=== PATIENT | female | born 1960 ===

== ENCOUNTER 2020-04-10 12:18 | Outpatient (REF) | payer OTHER, SELFPAY ==
--- NOTE | 2020-04-10 12:38 | XR_ITS ---
EXAMINATION: XR FOOT, RIGHT CLINICAL INFORMATION: Pain COMPARISON: Previous x-ray 02/24/2020 TECHNIQUE: AP, lateral, and oblique views of the right foot. FINDINGS: There is an oblique fracture of the shaft of the fifth metatarsal bone. This appears unchanged in alignment. Fracture line is still seen. There is some interval bony callus formation suggestive of healing. There is overlying soft tissue swelling. No other fracture is seen. Joint spaces are normal. There is a small plantar calcaneal spur. IMPRESSION: Healing oblique minimally displaced fracture of the fifth metatarsal bone.
== END 2020-04-10 12:19 | disposition home or self-care (01) ==
LOC: HO.HOSX 12:18
PROVIDERS: PCP Nurse Practitioner Family; Referring Provider Nurse Practitioner Family; Visit Provider Physician Assistant
DX: M79.671 Pain in right foot (principal)
CPT/HCPCS: 73630

== ENCOUNTER → 2020-04-19 08:20 | Outpatient (BNVA) | payer OTHER, SELFPAY | PROVIDERS: PCP Nurse Practitioner Family; Visit Provider Anesthesiology | DX: Z76.89 Persons encountering health services in other specified circumstances (principal) ==

== ENCOUNTER 2020-05-03 08:20 | Outpatient (REF) | payer OTHER, SELFPAY ==
[2020-05-03 10:56] LABS: Alanine Aminotransferase 22 U/L (0-31); Albumin Level 4.2 g/dL (3.5-5.0); Alkaline Phosphatase 60 U/L (39-117); Anion Gap 10 (12-20); Aspartate Amino Transferase 21 U/L (5-31); Bilirubin Total 0.4 mg/dL (0.0-1.0); Blood Urea Nitrogen 19 mg/dL (9-16); Carbon Dioxide 30 mmol/L (22-29); Chloride 103 mmol/L (96-108); Estimated Glomerular Filt Rate > 60; Glucose Random 88 mg/dL (60-115); Potassium 4.3 mmol/l (3.3-5.1); Sodium 139 mmol/L (135-145); Total Protein 6.6 g/dL (6.5-8.0)
== END 2020-05-03 08:21 | disposition home or self-care (01) ==
LOC: HO.LAB 08:20
PROVIDERS: PCP Nurse Practitioner Family; Referring Provider Nurse Practitioner Family; Visit Provider Student in an Organized Health Care Education/Training Program
DX: G89.29 Other chronic pain (principal); M54.5 Low back pain
CPT/HCPCS: 80053

== ENCOUNTER → 2020-10-31 07:42 | Outpatient (BNVA) | payer OTHER, SELFPAY | PROVIDERS: PCP Nurse Practitioner Family; Visit Provider Student in an Organized Health Care Education/Training Program ==

== ENCOUNTER → 2021-05-03 07:43 | Outpatient (BNVA) | payer OTHER, SELFPAY | PROVIDERS: PCP Nurse Practitioner Family; Visit Provider Nurse Practitioner Family ==

== ENCOUNTER 2021-08-01 07:52 | Outpatient (REF) | payer OTHER, SELFPAY ==
--- NOTE | ~2021-08-01 | US_ITS ---
EXAMINATION: US ABDOMEN COMPLETE CLINICAL INFORMATION: Right upper quadrant pain. COMPARISON: CT abdomen and pelvis 02/19/2011. TECHNIQUE: Real-time imaging of the abdominal viscera. FINDINGS: PANCREAS: Normal. ABDOMINAL AORTA: The proximal, mid, and distal segments are normal in caliber. INFERIOR VENA CAVA: Visualized portions are normal. LIVER: The liver is normal in size. The liver contour is normal. The liver echotexture is normal. No focal hepatic lesion. There is no intrahepatic biliary duct dilatation seen. GALLBLADDER: Normal. The gallbladder is physiologically distended without evidence of stones, polyps, wall thickening or pericholecystic fluid. COMMON BILE DUCT: Normal in caliber measuring 0.6 cm in diameter. RIGHT KIDNEY: Normal. No hydronephrosis. No renal calculi or focal parenchymal lesions. The kidney measures 10.8 cm in maximum dimension. LEFT KIDNEY: Normal No hydronephrosis. No renal calculi or focal parenchymal lesions. The kidney measures 10.8 cm in maximum dimension. SPLEEN: Normal. The spleen measures 10.2 cm in maximum dimension. FREE FLUID: None. US/US abdomen complete IMPRESSION: Unremarkable exam.
[2021-08-01 09:33] LABS: Alanine Aminotransferase 12 U/L (0-31); Albumin Level 4.4 g/dL (3.5-5.0); Alkaline Phosphatase 61 U/L (39-117); Anion Gap 12 (12-20); Aspartate Amino Transferase 17 U/L (5-31); Bilirubin Total 0.6 mg/dL (0.0-1.0); Blood Urea Nitrogen 15 mg/dL (9-16); Calcium 9.7 mg/dL (8.4-10.2); Carbon Dioxide 28 mmol/L (22-29); Chloride 106 mmol/L (96-108); Estimated Glomerular Filt Rate > 60; Glucose Random 96 mg/dL (60-115); Potassium 4.6 mmol/L (3.3-5.1); Sodium 141 mmol/L (135-145)
== END 2021-08-01 07:53 | disposition home or self-care (01) ==
LOC: HO.US 07:52
PROVIDERS: Nurse Practitioner Family; PCP Internal Medicine; Visit Provider Internal Medicine
DX: R10.11 Right upper quadrant pain (principal); G89.29 Other chronic pain; M54.50 Low back pain, unspecified
CPT/HCPCS: 36415; 76700; 80053

== ENCOUNTER → 2021-10-31 07:42 | Outpatient (BNVA) | payer OTHER, SELFPAY | PROVIDERS: PCP Nurse Practitioner Family; Visit Provider Nurse Practitioner Family | DX: M54.50 Low back pain, unspecified (principal) ==

== ENCOUNTER 2022-07-11 09:12 | Outpatient (REF) | payer OTHER, SELFPAY ==
[2022-07-11 11:27] LABS: Amphetamine Screen Urine Not Detected (Not Detect); Barbiturates, Urine Not Detected (Not Detect); Benzodiazepines Screen Urine Not Detected (Not Detect); Cocaine Screen Urine Not Detected (Not Detect); Fentanyl, urine Not Detected (Not Detect); Opiate Screen Urine Not Detected (Not Detect); Phencyclidine Screen Urine Not Detected (Not Detect)
[2022-07-11 11:29] LABS: Cannabinoid Screen Urine POSITIVE (Not Detect)
[2022-07-26 10:05] LABS: Tramadol, Ur 5850
[2022-07-26 10:08] LABS: Desmethyltramadol, Ur 785
== END 2022-07-11 09:13 | disposition home or self-care (01) ==
LOC: HO.LAB 09:12
PROVIDERS: PCP Internal Medicine; Visit Provider Nurse Practitioner Family
DX: Z51.81 Encounter for therapeutic drug level monitoring (principal)
CPT/HCPCS: 80307; 80373

== ENCOUNTER 2022-08-07 07:33 | Outpatient (REF) | payer OTHER, SELFPAY ==
--- NOTE | ~2022-08-07 | XR_ITS ---
EXAMINATION: XR HAND, BILATERAL CLINICAL INFORMATION: Bilateral hand pain, osteoarthritis. COMPARISON: 12/15/2018. TECHNIQUE: 3 views of each hand. FINDINGS: Right Hand: Moderate-severe osteoarthritis of the 1st CMC joint and relatively mild degenerative changes of the MCP and interphalangeal joints, overall slightly progressed since the prior study. No acute osseous abnormality. Left Hand: Mild osteoarthritis of the 1st CMC joint, 2nd MCP joint, and the interphalangeal joints which does not appear significantly changed. No acute abnormality. XR/XR hand LT min 3V IMPRESSION: RIGHT HAND: Moderate-severe osteoarthritis of the 1st CMC joint, overall slightly progressed since the prior study. LEFT HAND: Mild osteoarthritis of the 1st CMC joint, 2nd MCP joint, and interphalangeal joints, overall not significantly changed.
--- NOTE | ~2022-08-07 | XR_ITS ---
EXAMINATION: XR HAND, BILATERAL CLINICAL INFORMATION: Bilateral hand pain, osteoarthritis. COMPARISON: 12/15/2018. TECHNIQUE: 3 views of each hand. FINDINGS: Right Hand: Moderate-severe osteoarthritis of the 1st CMC joint and relatively mild degenerative changes of the MCP and interphalangeal joints, overall slightly progressed since the prior study. No acute osseous abnormality. Left Hand: Mild osteoarthritis of the 1st CMC joint, 2nd MCP joint, and the interphalangeal joints which does not appear significantly changed. No acute abnormality. XR/XR hand RT min 3V IMPRESSION: RIGHT HAND: Moderate-severe osteoarthritis of the 1st CMC joint, overall slightly progressed since the prior study. LEFT HAND: Mild osteoarthritis of the 1st CMC joint, 2nd MCP joint, and interphalangeal joints, overall not significantly changed.
== END 2022-08-07 07:34 | disposition home or self-care (01) ==
LOC: HO.XRAY 07:33
PROVIDERS: PCP Internal Medicine; Visit Provider Nurse Practitioner Family
DX: M19.042 Primary osteoarthritis, left hand (principal); M19.041 Primary osteoarthritis, right hand
CPT/HCPCS: 73130

== ENCOUNTER 2023-01-01 08:23 | Outpatient (AMB) | payer OTHER, SELFPAY ==
[2023-01-01 08:38] VITALS: BP 108/60; PULSE 62; TEMP 36.4; O2SAT 98; BMI 23.4
--- NOTE | 2023-01-01 08:38 | MHC.OFFVIS ---
Intake Vital Signs 01/01/23 08:38 Height 5 ft 11 in Weight 167 lb 12.348 oz BMI 23.4 BP 108/60 Blood Pressure Location Rt brachial Position Sitting Pulse 62 Pulse Source Pulse Oximeter Temp 97.5 F Temp Source Skin Pulse Oximetry (%) 98 Intake Visit Reasons: Back pain Intake Note: Pt seen today for back pain follow up. Seen multiple rheumatologists in the past and she has ? FM vs Lupus. Reports joint pain that comes in waves, where every joint hurts.. worse is rt hand and wrist, she reports flare up pain/swelling and redness 2-3 weeks ago. Flare up lasted about 5-7 days Echocardiograph Technician Required: No Accompanied by: Self / Same As Patient Allergies pregabalin Allergy (Intermediate, Verified 01/01/23 08:43) rash, headaches Medication List - Last Reconciled 01/01/23 by Hi Doan MD acetaminophen ER (Tylenol Arthritis Pain) 650 mg PO Q8H PRN baclofen 10 mg PO TID gabapentin 600 mg (2 x 300 mg) PO BEDTIME tramadol 50 mg PO Q8H PRN HPI HPI Comments History of Present Illness Details The patient presents for evaluation of hand pain and wrist pain. Mostly she describes pain at the base of the thumb with some general spread of the pain a bit proximally and dorsally over the hand. This has been present for years. It is worse in the right hand. She does have a positive BRENDEN. 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 Currently for her symptoms she takes acetaminophen 650 mg 3 times a day, gabapentin 600 mg at bedtime, and tramadol 50 mg 3 times a day. She sometimes takes the gabapentin in the daytime but finds it is often too sedating. In the past she was thought to possibly have fibromyalgia. She also gets low back pain. This comes on with more physical activity. [facility] Medical History (Updated 01/01/23 @ 15:48 by Hi Doan MD) Abdominal hernia H/O diverticulitis of colon Surgical History History of intestinal surgery History of partial hysterectomy Hx of knee surgery Family History (Updated 01/01/23 @ 08:45 by DARYL Butler) Father Heart attack Mother Colon cancer Diabetes Social History (Updated 01/01/23 @ 08:44 by Melania Ricks [facility]) Alcohol intake: current Alcohol intake frequency: holidays/special occasions only Patient Tobacco Use Status: Former Tobacco user Current occupational status: employed Current occupation: [employer] Sexual orientation: Straight/Heterosexual Gender identity: Female Review of Systems Const Details: Negative for appetite change, weight change, fever, chills, malaise and fatigue Eyes Details: Negative for vision change, dry eyes,headaches and dizziness Card Details: Negative chest pain, edema and syncope Resp Details: Negative for SOB, cough and wheezing GI Details: Negative indigestion/heartburn, nausea, abdominal pain, bowel changes, diarrhea, constipation and bloody stool. Skin/Breast Details: Negative for itching, rash, hives, Raynaud's symptoms, sun sensitivity, and skin cancer Neuro Details: Negative for epilepsy, palsy, stroke, changes in speech, tingling and weakness Psych Details: Negative for anxiety, depression and stress Endo Details: Negative for polyuria and polydypsia Arturo/Lymph Details: Negative for excessive bruising or bleeding. Physical Exam Vital Signs: Last Vital Signs Temp 97.5 F 01/01/23 08:38 Pulse 62 01/01/23 08:38 BP 108/60 01/01/23 08:38 Pulse Ox 98 01/01/23 08:38 BMI result Body Mass Index 23.4 APPEARANCE: Patient in no acute distress EYES no redness, pupils equal and reactive to light, eyelids normal EXTREMITIES: No edema, no calf tenderness, normal peripheral pulses. SKIN: No inflammatory or neoplastic lesions. Normal color and turgor JOINT EXAM: ?Cervical Spine:? Full range of motion without pain; no tenderness. Thoracic Spine:? No scoliosis.? No tenderness on palpation. Lumbar Spine:? Alignment normal.? Full range of motion, some pain with flexion, at 60 degrees..? No tenderness over lumbar spine. Hands:? LEFT: Slight bony enlargement and mild tenderness at the base of the thumb. Nontender bony enlargement at the 2nd, 3rd and 5th PIP joints. No flexor tendon triggering, soft tissue swelling, thenar atrophy or sensory loss. ? RIGHT: Mild bony enlargement and mild to moderate tenderness at the base of the thumb. There is some slightly tender bony enlargement also at the thumb IP and the 2nd and 3rd PIP joints. There is no soft tissue swelling. There is some thenar atrophy but no sensory loss. Wrists:? Normal pain-free range of motion without tenderness, swelling, increased warmth or erythema. Elbows: Normal pain-free range of motion without tenderness, swelling, increased warmth or erythema. Shoulders:?? Full range of motion without pain. No tenderness, weakness, swelling, increased warmth or erythema. Hips:? Full range of motion without pain. Hip bursa:? No tenderness. Knees:? Normal pain-free range of motion without tenderness, swelling, increased warmth or erythema.? There is no effusion or crepitation Feet:? Mild 1st MTP bony enlargement without tenderness. No soft tissue swelling, redness or warmth. Tender points: Positive in the trapezius, knees and trochanteric regions. Results Reviewed Results Reviewed: [address] [address] XRay Report Signed Patient: Alexus Swain MR#: [id number] : 1960 Acct:[id number] Age/Sex: 61 / F ADM Date: 08/07/22 Loc: [facility] Attending Dr: Kimberley Vasquez NP Ordering Physician: Kimberley Vasquez NP Date of Service: 08/07/22 Procedure(s): XR hand RT min 3V Accession Number(s): [id number] cc: Kimberley Vasquez NP~ EXAMINATION: XR HAND, BILATERAL CLINICAL INFORMATION: Bilateral hand pain, osteoarthritis.? COMPARISON: 12/15/2018.? TECHNIQUE: 3 views of each hand.? FINDINGS: Right Hand: Moderate-severe osteoarthritis of the 1st CMC joint and relatively mild degenerative changes of the MCP and interphalangeal joints, overall slightly progressed since the prior study. No acute osseous abnormality. Left Hand: Mild osteoarthritis of the 1st CMC joint, 2nd MCP joint, and the interphalangeal joints which does not appear significantly changed. No acute abnormality.? XR/XR hand RT min 3V IMPRESSION: ? RIGHT HAND: Moderate-severe osteoarthritis of the 1st CMC joint, overall slightly progressed since the prior study. ? LEFT HAND: Mild osteoarthritis of the 1st CMC joint, 2nd MCP joint, and interphalangeal joints, overall not significantly changed. Dictated By: Gonsalo Valdez MD Signed By: <Electronically signed by Gonsalo Valdez MD in OV> 08/08/22 1900 Assessment & Plan Assessment & Plan (1) Spondylosis of lumbar region without myelopathy or radiculopathy: Code(s): M47.816 - Spondylosis without myelopathy or radiculopathy, lumbar region (2) Osteoarthritis of hands, bilateral: Code(s): M19.041 - Primary osteoarthritis, right hand; M19.042 - Primary osteoarthritis, left hand Plan Her biggest problem is osteoarthritis at the base of the thumbs. This is more prominent on the right side. There are also a few other joints in the hands look like they have OA. She is less active now that she has retired so that should be possibly more helpful for her. She remains on 50 mg tramadol, 2-3 tablets a day. I suggest she add some diclofenac gel topically and see if she could avoid using the tramadol during the day. We went over that use of the tramadol and gabapentin could cause extra sedation which she may become more sensitive to as she gets older. I will continue with the controlled substance contract for the present time. Since she has stopped working it might be a good time to undergo some physical therapy so she can develope an exercise program to improve the symptoms in the lumbar osteoarthritis. She is not wishing to do that currently but will give us a call if she changes her mind. A follow-up in 6 months would be reasonable. Medications: New diclofenac sodium 1% apply to thumbs joint twice day 1 g topical BID 100 grams 1RF M19.041 - Primary osteoarthritis, right hand, M19.042 - Primary osteoarthritis, left hand Coding Level of Care Code Est Pt Level 3 (36279) Diagnoses Spondylosis of lumbar region without myelopathy or radiculopathy M47.816 Osteoarthritis of hands, bilateral M19.041; M19.042
== END 2023-01-01 09:42 | disposition home or self-care (01) ==
PROVIDERS: PCP Internal Medicine; Visit Provider Internal Medicine Rheumatology
DX: M47.816 Spondylosis without myelopathy or radiculopathy, lumbar region (principal); M19.041 Primary osteoarthritis, right hand; M19.042 Primary osteoarthritis, left hand
CPT/HCPCS: 99213

== ENCOUNTER → 2023-01-01 08:23 | Outpatient (BNVA) | payer OTHER, SELFPAY | PROVIDERS: PCP Internal Medicine; Visit Provider Internal Medicine Rheumatology | DX: M47.816 Spondylosis without myelopathy or radiculopathy, lumbar region (principal); M19.041 Primary osteoarthritis, right hand; M19.042 Primary osteoarthritis, left hand | CPT/HCPCS: 99212 ==

== ENCOUNTER 2023-06-04 08:10 | Outpatient (AMB) | payer OTHER, SELFPAY ==
--- NOTE | 2023-06-04 08:11 | A.OFFVIS_ITS ---
Intake Vital Signs 06/04/23 08:16 Height 5 ft 11 in Weight 175 lb 4.28 oz BMI 24.4 BP 104/60 Blood Pressure Location Lt brachial Position Sitting Pulse 73 Pulse Source Pulse Oximeter Temp 97 F Temp Source Skin Pulse Oximetry (%) 96 Oxygen Delivery Method Room Air Intake Visit Reasons: OA Intake Note: Patient presents to office today for OA follow up. Customer Success Representative Required: No Accompanied by: Self / Same As Patient Allergies pregabalin Allergy (Intermediate, Verified 06/04/23 08:12) rash, headaches Medication List - Last Reconciled 06/04/23 by Hi Doan MD acetaminophen ER (Tylenol Arthritis Pain) 650 mg PO Q8H PRN baclofen 10 mg PO TID diclofenac sodium 1% 1 g topical BID gabapentin 600 mg (2 x 300 mg) PO BEDTIME tramadol 50 mg PO Q8H PRN HPI HPI Comments History of Present Illness Details The patient returns for evaluation of her osteoarthritis involving the hands, lower back, and occasionally the knees. She is on tramadol 50 mg t.i.d., sometimes taking just 2 a day. She has tried Tylenol Arthritis but does not use it often as it does not seem to help a whole lot. She does take baclofen 10 mg t.i.d. which she finds is helpful. She takes gabapentin at night for some peripheral leg pain and stiffness. At her last visit we started some diclofenac gel and she has found that helpful for her hand pain, she is occasionally using it on the knees. There has not been any swelling in the knees but she does get some bony enlargement over the hands. The right thumb is the more problematic area. However in the last 4 or 5 months she has been noting some hand paresthesias, more prominent in the left hand. She does have wrist splints that seem to help that. She has never had nerve conduction studies. She did have injections for the back pain in the past that were not all that helpful. She is retired now but does do gardening and housework. On busier days there is more hand and back pain. [facility] Medical History (Updated 01/01/23 @ 15:48 by Hi Doan MD) Abdominal hernia H/O diverticulitis of colon Surgical History History of intestinal surgery History of partial hysterectomy Hx of knee surgery Family History Father Heart attack Mother Colon cancer Diabetes Social History Alcohol intake: current Alcohol intake frequency: holidays/special occasions only Patient Tobacco Use Status: Former Tobacco user Current occupational status: employed Current occupation: [employer] Sexual orientation: Straight/Heterosexual Gender identity: Female Review of Systems Const Details: Negative for appetite change, weight change, fever, chills, malaise and fatigue Eyes Details: Negative for vision change, dry eyes,headaches and dizziness ENT Details: Negative for hearing change, tinnitus, oral ulcer, nose bleeds and oral dryness. Card Details: Negative chest pain, edema and syncope Resp Details: Negative for SOB, cough and wheezing GI Details: Negative indigestion/heartburn, nausea, abdominal pain, bowel changes, diarrhea, constipation and bloody stool. Neuro Details: Left greater than right hand paresthesias. Negative for epilepsy, palsy, stroke, changes in speech, and weakness Endo Details: Negative for polyuria and polydypsia Arturo/Lymph Details: Negative for excessive bruising or bleeding. Physical Exam Vital Signs: Last Vital Signs Temp 97 F 06/04/23 08:16 Pulse 73 06/04/23 08:16 BP 104/60 06/04/23 08:16 Pulse Ox 96 06/04/23 08:16 Oxygen Delivery Method Room Air 06/04/23 08:16 BMI result Body Mass Index 24.4 APPEARANCE: Patient in no acute distress EYES no redness, pupils equal and reactive to light, eyelids normal EXTREMITIES: No edema, no calf tenderness, normal peripheral pulses. SKIN: No inflammatory or neoplastic lesions. Normal color and turgor JOINT EXAM: ?Cervical Spine:? Full range of motion without pain; no tenderness. Thoracic Spine:? No scoliosis.? No tenderness on palpation. Lumbar Spine:? Alignment normal.? Full range of motion, some pain with flexion, at 60 degrees..? No tenderness over lumbar spine. Hands:? LEFT: Slight bony enlargement and mild tenderness at the base of the thumb. Nontender bony enlargement at the 2nd, 3rd and 5th PIP joints. No flexor tendon triggering, soft tissue swelling, thenar atrophy or sensory loss. ? RIGHT: Mild bony enlargement and mild to moderate tenderness at the base of the thumb. There is some slightly tender bony enlargement also at the thumb IP and the 2nd and 3rd PIP joints. There is no soft tissue swelling. There is some thenar atrophy but no sensory loss. Wrists:? Right: Normal pain-free range of motion without tenderness, swelling, increased warmth or erythema. Negative Phalen's and Tinel signs. Left: Normal pain-free range of motion without swelling. There is some minimal volar tenderness. Positive Phalen's test but negative Tinel sign. Elbows: Normal pain-free range of motion without tenderness, swelling, increased warmth or erythema. Shoulders:?? Full range of motion with slight discomfort at the extremes of abduction. No adenopathy, tenderness, weakness, swelling, increased warmth or erythema. Hips:? Full range of motion without pain. Hip bursa:? No tenderness. Knees:? Normal pain-free range of motion with slight patellofemoral crepitus. There is some minimal medial compartment tenderness on the left but not the right. There are no effusions, soft tissue swelling, increased warmth or erythema.? There is no effusion or crepitation Feet:? Mild 1st MTP bony enlargement without tenderness. No soft tissue swelling, redness or warmth. Tender points: Positive in the trapezius, knees and trochanteric regions. Results Reviewed Results Reviewed: Laboratory Tests 12/15/18 08/01/21 12:35 08:15 Hgb 13.4 Creatinine 0.86 Assessment & Plan Assessment & Plan (1) Carpal tunnel syndrome: Code(s): G56.00 - Carpal tunnel syndrome, unspecified upper limb (2) Medication monitoring encounter: Comment: Tramadol pain contract updated 06/04/2022 Code(s): Z51.81 - Encounter for therapeutic drug level monitoring (3) Spondylosis of lumbar region without myelopathy or radiculopathy: Code(s): M47.816 - Spondylosis without myelopathy or radiculopathy, lumbar region (4) Osteoarthritis of hands, bilateral: Code(s): M19.041 - Primary osteoarthritis, right hand; M19.042 - Primary osteoarthritis, left hand Plan The hand numbness in the left hand at night and the response to splinting suggest this is carpal tunnel syndrome. She has much milder and less frequent paresthesias in the right hand. However there is more OA pain in the right thumb. She also probably has some OA in the knees and lower back. She asks about taking fewer pills; I suggested she try to cut back on the tramadol. It does potential side effects. If she were to use the extra-strength Tylenol, 1 or 2 t.i.d. that might give her more quick benefit for pain relief when needed. We talked about possibly doing nerve conduction studies to document carpal tunnel syndrome with looking to the future either with injections of the wrists and or surgery for carpal tunnel. She wants to think about it further. I encouraged her to remain physically active but be judicious about prolonged physical activity and try to spread out her chores over few days. A follow-up at 6 months is arranged but she could call us in the future if she wants to proceed with the nerve conduction studies. Coding Level of Care Code Est Pt Level 3 (63601) Diagnoses Carpal tunnel syndrome G56.00 Medication monitoring encounter Z51.81 Spondylosis of lumbar region without myelopathy or radiculopathy M47.816 Osteoarthritis of hands, bilateral M19.041; M19.042
[2023-06-04 08:16] VITALS: BP 104/60; PULSE 73; TEMP 36.1; O2SAT 96; BMI 24.4
== END 2023-06-04 08:55 | disposition home or self-care (01) ==
PROVIDERS: PCP Internal Medicine; Visit Provider Internal Medicine Rheumatology
DX: G56.00 Carpal tunnel syndrome, unspecified upper limb (principal); Z51.81 Encounter for therapeutic drug level monitoring; M47.816 Spondylosis without myelopathy or radiculopathy, lumbar region; M19.041 Primary osteoarthritis, right hand; M19.042 Primary osteoarthritis, left hand
CPT/HCPCS: 99213

== ENCOUNTER → 2023-06-04 08:10 | Outpatient (BNVA) | payer OTHER, SELFPAY | PROVIDERS: PCP Internal Medicine; Visit Provider Internal Medicine Rheumatology | DX: Z51.81 Encounter for therapeutic drug level monitoring (principal); M19.041 Primary osteoarthritis, right hand; M19.042 Primary osteoarthritis, left hand; G56.00 Carpal tunnel syndrome, unspecified upper limb; M47.816 Spondylosis without myelopathy or radiculopathy, lumbar region | CPT/HCPCS: 99212 ==

== ENCOUNTER 2023-10-03 06:35 | Day surgery (SDC) | payer MEDICARE, SELFPAY ==
[2023-09-30 13:08] VITALS: BMI 27.0
--- NOTE | 2023-10-02 10:52 | HO.ANESPROP2 ---
Documented by User: Johana Swenson NP 10/02/23 10:53 HPI - Anesthesia Eval Consult details Narrative: 63yo F for Colonoscopy PMFSH Active Problems Active Problems: All Active Problems Carpal tunnel syndrome (Acute) Plantar fascial fibromatosis (Acute) Insomnia (Acute) Medication monitoring encounter (Acute) Osteoarthritis of hands, bilateral (Acute) Spondylosis of lumbar region without myelopathy or radiculopathy (Acute) FPC current use of non-steroidal anti-inflammatories (NSAID) (Acute) Past Medical History Medical History (Updated 09/30/23 @ 13:03 by Denise Mccray RN) Urine incontinence Uterine prolapse Osteoarthritis FPC current use of non-steroidal anti-inflammatories (NSAID) Abdominal hernia H/O diverticulitis of colon Family History Family History Father Heart attack Mother Colon cancer Diabetes Surgical History Surgical History (Updated 09/30/23 @ 13:03 by Denise Mccray RN) Hx of resection of large bowel History of arthroscopy of left knee H/O colonoscopy History of intestinal surgery History of partial hysterectomy Hx of knee surgery Social History Social History Alcohol intake: current Alcohol intake frequency: holidays/special occasions only Patient Tobacco Use Status: Former Tobacco user Substance Use Type Other:: edibles 4 nights ago Are you DNR?: No Advance Directives: No Advance Directives Information Provided: Yes Nutrition Risks: No Nutritional Risk Patient : No Current occupational status: employed Current occupation: [employer] Sexual orientation: Straight/Heterosexual Gender identity: Female Meds Allergies Allergy/AdvReac Type Severity Reaction Status Date / Time pregabalin Allergy Intermediate rash, Verified 06/04/23 08:12 headaches Home Medications ?Medication ?Instructions ?Recorded ?Confirmed ?Last Taken ?Type [id number] 250 2 tab PO DAILY 09/30/23 09/30/23 09/25/23 History mg-250 mg-65 mg tablet (Excedrin Extra Strength) tramadol 50 mg tablet 100 mg PO QID PRN pain 09/30/23 09/30/23 09/25/23 History Exam Height,Weight and Vital Signs: Height 5 ft 6.5 in Weight 77.111 kg Assessment and Plan Assessment Anesthesia Assessment: Chart Reviewed Documented by User: Alexey Swain MD 10/03/23 07:32 PMFSH Past Medical History Medical History (Updated 09/30/23 @ 13:03 by Denise Mccray RN) Urine incontinence Uterine prolapse 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) Abdominal hernia H/O diverticulitis of colon Family History Family History Father Heart attack Mother Colon cancer Diabetes Family history of problems with anesthesia: No Surgical History Surgical History (Updated 09/30/23 @ 13:03 by Denise Mccray RN) Hx of resection of large bowel History of arthroscopy of left knee H/O colonoscopy History of intestinal surgery History of partial hysterectomy Hx of knee surgery History of Problems with Anesthesia: No Social History Social History Alcohol intake: current Alcohol intake frequency: holidays/special occasions only Patient Tobacco Use Status: Former Tobacco user Substance Use Type Other:: edibles 4 nights ago Are you DNR?: No Advance Directives: No Advance Directives Information Provided: Yes Nutrition Risks: No Nutritional Risk Patient : No Current occupational status: employed Current occupation: [employer] Sexual orientation: Straight/Heterosexual Gender identity: Female Meds Allergies Allergy/AdvReac Type Severity Reaction Status Date / Time pregabalin Allergy Intermediate rash, Verified 06/04/23 08:12 headaches Home Medications ?Medication ?Instructions ?Recorded ?Confirmed ?Last Taken ?Type gdfoxjw-bgeogctbhndnl-rpthvpjp 250 2 tab PO DAILY 09/30/23 09/30/23 09/25/23 History mg-250 mg-65 mg tablet (Excedrin Extra Strength) tramadol 50 mg tablet 100 mg PO QID PRN pain 09/30/23 09/30/23 09/25/23 History Exam Airway Mallampati Class: I TM Dist: >3cm Neck ROM: Full Denture: Upper Partial: Lower Loose/Missing/Broken Teeth: No Heart: rrr Lungs: cta Assessment and Plan Assessment Anesthesia Assessment: Anesthesia Plan Discussed Final Anesthetic Review Family History of Problems with Anesthesia: No History of Problems with Anesthesia: No NPO: Yes ASA Class: II Final Preanesthetic Review: No Changes in Pt Med Stat, Meds/Allgs Chart Reviewed, Consent Obtained/Reviewed and Anes Risks/Benef Reviewed Patient Risk: Intermediate Procedure Risk: Intermediate Anesthetic Plan Anesthetic Plan: MAC: Disposition: Standard PACU
[2023-10-03 06:57] VITALS: BP 140/82; PULSE 75; RESP 18; TEMP 36.6; O2SAT 98; BMI 27.7
[2023-10-03] MEDS: Lactated Ringers 1,000 ML 100 ML IVCONT (07:17)
--- NOTE | 2023-10-03 08:17 | MHC.SHP ---
Pre-Procedural Eval Section A - 24 Hr Update-Section A only Date of Service: 10/03/23 Section B - Complete if H&P > 30 days Chief Complaint: Encounter for screening for malignant neoplasm of Details of Present Illness: see H&P no changes Relevant Family History (Specify if Yes): No Relevant Social History: None Present Medications: see Short Stay Collaborative assessment Medical History: No relevant PMH History of Previous Operations: No relevant previous surgery Allergies: Allergies Allergy/AdvReac Type Severity Reaction Status Date / Time pregabalin Allergy Intermediate rash, Verified 06/04/23 08:12 headaches Review of Systems Sugical H&P ROS: Negative: Constitution, Cardiovascular, Respiratory, Neurological, Psychiatric, Hem-Onc, Allergic/Immunologic, Gastrointestinal, Genitourinary, Musculoskeletal, Integumentary, Endocrine and Eyes/Ears/Nose/Throat Exam Surgical H&P Exam: Normal: HEENT, Normal: Heart, Normal: Lungs, Normal: Extremities, Normal: Abdomen, Normal: Skin and Normal: Neurological Plan Diagnosis/Plan: Unchanged I have reviewed the history and physical and performed a pertinent physical examination on my patient. No changes have occurred unless specified. Time Spent With Patient Time: Total time managing care of this patient today ____ minutes.
[2023-10-03 09:14] VITALS: BP 125/73; PULSE 73; RESP 16; TEMP 36.1; O2SAT 97
[2023-10-03 09:33] VITALS: BP 126/75; PULSE 58; RESP 17; TEMP 36.1; O2SAT 98
--- NOTE | 2023-10-03 09:34 | OP_ITS ---
DATE OF SERVICE: 10/03/2023 SURGEON: Volodymyr Harley MD INDICATIONS: Colon cancer screening. PREOPERATIVE DIAGNOSIS: POSTOPERATIVE DIAGNOSIS: PROCEDURE PERFORMED: Colonoscopy to the terminal ileum with snare polypectomy and biopsy. ESTIMATED BLOOD LOSS: COMPLICATIONS: ANESTHESIA: Monitored anesthesia care. ASSISTANTS: SPECIMENS: DESCRIPTION OF PROCEDURE: A history and physical performed. The risks and benefits of the procedure explained to the patient. Informed consent was obtained. The patient was placed in the left lateral decubitus position. A digital rectal exam was performed and was found to be normal. The Olympus pediatric video-colonoscope was introduced into the rectum and advanced to the cecum. The cecum was identified by transillumination, palpation, and identification of ileocecal valve. Examination was performed. The scope was removed. She tolerated the procedure well, was returned to Recovery in stable condition. FINDINGS: The terminal ileum was normal. The visualized colonic mucosa was normal. There were a total of 3 polyps, which were removed with a combination of biopsy forceps and hot snare. All were less than 10 mm. Two were located at 50 cm and one at 40 cm. No other polyps were identified. Retroflexed examination showed some hypertrophic anal papillae and moderate-sized internal hemorrhoids. There was some diverticulosis mainly in the descending colon. The quality of the prep was good. IMPRESSION: 1. Colon polyps. 2. Family history of colon cancer. RECOMMENDATION: 1. Follow up the biopsy results. 2. Repeat colonoscopy is likely to be in 5 years based on today's examination. MD JONE Sanchez/ERIKL / [id number]
== END 2023-10-03 10:07 | disposition home or self-care (01) ==
PROVIDERS: PCP Internal Medicine; Visit Provider Internal Medicine Gastroenterology
PROC: 0DJD8ZZ Inspection of Lower Intestinal Tract, Via Natural or Artificial Opening Endoscopic (ICD-10-PCS; CPT 45378; principal; 2023-10-03 08:10)
DX: Z12.11 Encounter for screening for malignant neoplasm of colon (principal); Z80.0 Family history of malignant neoplasm of digestive organs; Z86.010 Personal history of colon polyps; D12.5 Benign neoplasm of sigmoid colon; K62.89 Other specified diseases of anus and rectum; K57.30 Diverticulosis of large intestine without perforation or abscess without bleeding; K64.8 Other hemorrhoids; Z79.899 Other long term (current) drug therapy; Z79.1 Long term (current) use of non-steroidal anti-inflammatories (NSAID); Z90.49 Acquired absence of other specified parts of digestive tract; Z98.890 Other specified postprocedural states; Z87.891 Personal history of nicotine dependence
CPT/HCPCS: 45385; 45380; 88305

== ENCOUNTER 2023-12-05 08:11 | Outpatient (AMB) | payer MEDICARE, SELFPAY ==
--- NOTE | 2023-12-05 08:16 | MHC.OFFVIS ---
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 Doan, presents today for follow up. Denies recent surgeries or hospital visits. She is retired, reports some hand pain after gardening. Difficulty sleeping, occasionally takes gummies Ad Operations Coordinator Required: No Accompanied by: Self / Same As Patient Allergies pregabalin Allergy (Intermediate, Verified 12/05/23 08:33) rash, headaches Followed by:: Dr Harley Colonoscopy q5y FH Colon CA HPI Comments Details: Ms. Swain 63yoF returns for follow-up of her osteoarthritis involving the hands, lower back, and occasionally the knees. She is on tramadol 50 mg t.i.d., sometimes taking just 2 a day. She does take baclofen 10 mg t.i.d. She offers no concerns today. She is going to [facility] with her son who getting Chemo. 05/2023: Dr. Doan The patient returns for evaluation of her osteoarthritis involving the hands, lower back, and occasionally the knees. She is on tramadol 50 mg t.i.d., sometimes taking just 2 a day. She has tried Tylenol Arthritis but does not use it often as it does not seem to help a whole lot. She does take baclofen 10 mg t.i.d. which she finds is helpful. She takes gabapentin at night for some peripheral leg pain and stiffness. At her last visit we started some diclofenac gel and she has found that helpful for her hand pain, she is occasionally using it on the knees. There has not been any swelling in the knees but she does get some bony enlargement over the hands. The right thumb is the more problematic area. However in the last 4 or 5 months she has been noting some hand paresthesias, more prominent in the left hand. She does have wrist splints that seem to help that. She has never had nerve conduction studies. She did have injections for the back pain in the past that were not all that helpful. She is retired now but does do gardening and housework. On busier days there is more hand and back pain. [facility] Medical History (Updated 12/05/23 @ 08:56 by ALONSO Ryder-JONE) Urine incontinence Uterine prolapse Osteoarthritis senior care current use of non-steroidal anti-inflammatories (NSAID) Abdominal hernia H/O diverticulitis of colon Surgical History Hx of resection of large bowel History of arthroscopy of left knee H/O colonoscopy History of intestinal surgery History of partial hysterectomy Hx of knee surgery Family History Father Heart attack Mother Colon cancer Diabetes Social History Alcohol intake: current Alcohol intake frequency: holidays/special occasions only Patient Tobacco Use Status: Former Tobacco user Current occupational status: employed Current occupation: [employer] Sexual orientation: Straight/Heterosexual Gender identity: Female Review of Systems Const All systems reviewed & are unremarkable except as noted in HPI and below Physical Exam APPEARANCE: Patient in no acute distress EYES no redness, pupils equal and reactive to light, eyelids normal EXTREMITIES: No edema, no calf tenderness, normal peripheral pulses. SKIN: No inflammatory or neoplastic lesions. Normal color and turgor JOINT EXAM: ?Cervical Spine:? Full range of motion without pain; no tenderness. Thoracic Spine:? No scoliosis.? No tenderness on palpation. Lumbar Spine:? Alignment normal.? Full range of motion, some pain with flexion, at 60 degrees..? No tenderness over lumbar spine. Hands:? LEFT: Slight bony enlargement and mild tenderness at the base of the thumb. Nontender bony enlargement at the 2nd, 3rd and 5th PIP joints. No flexor tendon triggering, soft tissue swelling, thenar atrophy or sensory loss. ? RIGHT: Mild bony enlargement and mild to moderate tenderness at the base of the thumb. There is some slightly tender bony enlargement also at the thumb IP and the 2nd and 3rd PIP joints. There is no soft tissue swelling. There is some thenar atrophy but no sensory loss. Wrists:? Right: Normal pain-free range of motion without tenderness, swelling, increased warmth or erythema. Negative Phalen's and Tinel signs. Left: Normal pain-free range of motion without swelling. There is some minimal volar tenderness. Positive Phalen's test but negative Tinel sign. Elbows: Normal pain-free range of motion without tenderness, swelling, increased warmth or erythema. Shoulders:?? Full range of motion with slight discomfort at the extremes of abduction. No adenopathy, tenderness, weakness, swelling, increased warmth or erythema. Hips:? Full range of motion without pain. Hip bursa:? No tenderness. Knees:? Normal pain-free range of motion with slight patellofemoral crepitus. There is some minimal medial compartment tenderness on the left but not the right. There are no effusions, soft tissue swelling, increased warmth or erythema.? There is no effusion or crepitation Feet:? Mild 1st MTP bony enlargement without tenderness. No soft tissue swelling, redness or warmth. Tender points: Positive in the trapezius, knees and trochanteric regions. Assessment & Plan Assessment & Plan (1) Carpal tunnel syndrome: Code(s): G56.00 - Carpal tunnel syndrome, unspecified upper limb Category: Medical Qualifiers: Laterality: bilateral Qualified Code(s): G56.03 - Carpal tunnel syndrome, bilateral upper limbs (2) Medication monitoring encounter: Comment: Tramadol pain contract updated 06/04/2022 Code(s): Z51.81 - Encounter for therapeutic drug level monitoring Category: Medical (3) Spondylosis of lumbar region without myelopathy or radiculopathy: Code(s): M47.816 - Spondylosis without myelopathy or radiculopathy, lumbar region Category: Medical (4) Osteoarthritis of hands, bilateral: Code(s): M19.041 - Primary osteoarthritis, right hand; M19.042 - Primary osteoarthritis, left hand Category: Medical Qualifiers: Osteoarthritis type: primary Qualified Code(s): M19.041 - Primary osteoarthritis, right hand; M19.042 - Primary osteoarthritis, left hand (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 We will continue with medications as prescribed. The cyst-like lesion on the right middle finger she was told is because of the OA. She says they come and go. They do look like mucoid cyst. She does not find them especially bothersome at this time. Will obtain labs for 1 week before next visit. PRIOR ASSESSMENT:05/2023 The hand numbness in the left hand at night and the response to splinting suggest this is carpal tunnel syndrome. She has much milder and less frequent paresthesias in the right hand. However there is more OA pain in the right thumb. She also probably has some OA in the knees and lower back. She asks about taking fewer pills; I suggested she try to cut back on the tramadol. It does potential side effects. If she were to use the extra-strength Tylenol, 1 or 2 t.i.d. that might give her more quick benefit for pain relief when needed. We talked about possibly doing nerve conduction studies to document carpal tunnel syndrome with looking to the future either with injections of the wrists and or surgery for carpal tunnel. She wants to think about it further. I encouraged her to remain physically active but be judicious about prolonged physical activity and try to spread out her chores over few days. A follow-up at 6 months is arranged but she could call us in the future if she wants to proceed with the nerve conduction studies. Orders: Orders Comprehensive Met. Panel Today M19.041 - Primary osteoarthritis, right hand, M19.042 - Primary osteoarthritis, left hand, Z51.81 - Encounter for therapeutic drug level monitoring, Z79.1 - senior care (current) use of non-steroidal anti-inflammatories (NSAID) Complete Blood Count Auto Diff Today M19.041 - Primary osteoarthritis, right hand, M19.042 - Primary osteoarthritis, left hand, Z51.81 - Encounter for therapeutic drug level monitoring, Z79.1 - senior care (current) use of non-steroidal anti-inflammatories (NSAID) Erythrocyte Sedimentation Rate Today M19.041 - Primary osteoarthritis, right hand, M19.042 - Primary osteoarthritis, left hand, Z51.81 - Encounter for therapeutic drug level monitoring, Z79.1 - remote computer terminal operator (current) use of non-steroidal anti-inflammatories (NSAID) C Reactive Protein Today M19.041 - Primary osteoarthritis, right hand, M19.042 - Primary osteoarthritis, left hand, Z51.81 - Encounter for therapeutic drug level monitoring, Z79.1 - remote computer terminal operator (current) use of non-steroidal anti-inflammatories (NSAID) Coding Level of Care Code Est Pt Level 2 (64474) Diagnoses Bilateral carpal tunnel syndrome G56.03 Laterality: bilateral Medication monitoring encounter Z51.81 Spondylosis of lumbar region without myelopathy or radiculopathy M47.816 Primary osteoarthritis of both hands M19.041; M19.042 Osteoarthritis type: primary senior care current use of non-steroidal anti-inflammatories (NSAID) Z79.1
== END 2023-12-05 08:59 | disposition home or self-care (01) ==
PROVIDERS: PCP Internal Medicine; Visit Provider Nurse Practitioner Family
DX: G56.03 Carpal tunnel syndrome, bilateral upper limbs (principal); Z51.81 Encounter for therapeutic drug level monitoring; M47.816 Spondylosis without myelopathy or radiculopathy, lumbar region; M19.041 Primary osteoarthritis, right hand; M19.042 Primary osteoarthritis, left hand; Z79.1 Long term (current) use of non-steroidal anti-inflammatories (NSAID)
CPT/HCPCS: 99212

== ENCOUNTER → 2023-12-05 08:11 | Outpatient (BNVA) | payer MEDICARE, SELFPAY | PROVIDERS: PCP Internal Medicine; Visit Provider Nurse Practitioner Family | DX: G56.03 Carpal tunnel syndrome, bilateral upper limbs (principal); M47.816 Spondylosis without myelopathy or radiculopathy, lumbar region; M19.041 Primary osteoarthritis, right hand; M19.042 Primary osteoarthritis, left hand; Z79.1 Long term (current) use of non-steroidal anti-inflammatories (NSAID) | CPT/HCPCS: 99212 ==

== ENCOUNTER 2024-03-08 08:11 | Outpatient (REF) | payer MEDICARE, SELFPAY ==
[2024-03-08 08:29] LABS: MANUAL DIFF FLAG NO
[2024-03-08 08:58] LABS: Basophils Percent Auto 0.6 % (0-2); Eosinophils Absolute Auto 0.2 X10*3/uL (0.0-0.4); Eosinophils Percent Auto 4.1 % (0-4); Hematocrit 43.3 % (37.0-47.0); Hemoglobin 14.1 g/dl (12.0-16.0); Imm Gran Abs Auto 0.01 X10*3/uL (0.00-0.03); Imm Gran Pct Auto 0.2 % (0.0-0.4); Lymphocytes Absolute Auto 1.3 X10*3/uL (1.2-4.9); Lymphocytes Percent Auto 27.2 % (20-40); Mean Corpuscular HGB Conc 32.6 g/dl (31.0-35.0); Mean Corpuscular Hemoglobin 30.3 pg (27.0-33.0); Mean Corpuscular Volume 93.1 fL (80.0-98.0); Mean Platelet Volume 9.5 fL (9.4-12.3); Monocytes Absolute Auto 0.5 X10*3/uL (0.1-1.2); Monocytes Percent Auto 10.3 % (2-11); Neutrophils Absolute Auto 2.8 x10*3/uL (2.0-8.3); Neutrophils Percent Auto 57.6 % (45-73); Platelet Count 221 X10*3/uL (160-400); Red Blood Count 4.65 X10*6/uL (4.20-5.50); Red Cell Distribution Width 14.3 % (11.0-16.0); White Blood Count 4.9 X10*3/uL (4.8-10.8)
[2024-03-08 09:32] LABS: Alanine Aminotransferase 15 U/L (0-31); Albumin Level 4.3 g/dL (3.5-5.0); Alkaline Phosphatase 72 U/L (39-117); Anion Gap 11 (12-20); Aspartate Amino Transferase 20 U/L (5-31); Bilirubin Total 0.3 mg/dL (0.0-1.0); Blood Urea Nitrogen 21 mg/dL (9-16); C Reactive Protein 0.15 mg/dL (< or = 0.50); Carbon Dioxide 30 mmol/L (22-29); Chloride 106 mmol/L (96-108); Estimated Glomerular Filt Rate > 60; Glucose Random 97 mg/dL (60-115); Potassium 4.4 mmol/L (3.3-5.1); Sodium 143 mmol/L (135-145); Total Protein 7.2 g/dL (6.5-8.0)
[2024-03-08 09:37] LABS: Erythrocyte Sedimentation Rate 6 MM/HR (0-20)
== END 2024-03-08 08:12 | disposition home or self-care (01) ==
LOC: HO.LAB 08:11
PROVIDERS: Visit Provider Nurse Practitioner Family
DX: M19.041 Primary osteoarthritis, right hand (principal); M19.042 Primary osteoarthritis, left hand; Z51.81 Encounter for therapeutic drug level monitoring; Z79.1 Long term (current) use of non-steroidal anti-inflammatories (NSAID)
CPT/HCPCS: 36415; 80053; 85025; 85652; 86140

== ENCOUNTER 2024-03-26 08:45 | Outpatient (AMB) | payer MEDICARE, SELFPAY ==
[2024-03-26 08:47] VITALS: BP 120/66; PULSE 70; O2SAT 100; BMI 26.6
--- NOTE | 2024-03-26 08:47 | MHC.OFFVIS ---
Vital Signs 03/26/24 08:47 Height 5 ft 6.5 in Weight 167 lb 5.294 oz BMI 26.6 BP 120/66 Blood Pressure Location Lt brachial Position Sitting Pulse 70 Pulse Source Pulse Oximeter Pulse Oximetry (%) 100 Oxygen Delivery Method Room Air Intake Visit Reasons: CTS Intake Note: Patient last seen by Vanita Adams on 12/05/23. Presents today for CTS follow up and test results. Patient would like a prescription for the Voltaren gel, if possible. Allergies pregabalin Allergy (Intermediate, Verified 03/26/24 08:51) rash, headaches Medication List - Last Reconciled 03/26/24 by Kiesha Mann MD [id number] 250-250-65 mg (Excedrin Extra Strength) 2 tabs PO DAILY baclofen 10 mg PO TID diclofenac sodium 1% 1 g topical BID gabapentin 600 mg (2 x 300 mg) PO BEDTIME tramadol 50 mg PO TID HPI Comments Details: Patient is a 63-year-old female with polyarticular osteoarthritis involving the hands, lower back and occasionally the knees. As well as carpal tunnel syndrome who is here today for follow-up. Interval History: Last visit 12/05/2023 with Vanita Adams. At that time she was stable. Provider notes reviewed since last visit: No notes seen in system after 12/05/2023 Today, Patient reports that she has been having increasing worsening pain in her knees. Pain worse at the end of the day. Minimal AM stiffness. Also notes that her carpal tunnel has been worse over the past few months. The splint helps but during the day she has numbness gardening needing to flash her hands to regain feeling. Denies prolonged AM stiffness, rash , photosensitivity Of note remote history of laproscopic left knee surgery >15 years ago Rheumatologic History: Notes for patient is seen as far back as April 2020 where she presented for evaluation of low back pain. Over the years she has been following up with Rheumatology for diagnosis of osteoarthritis. She has a low titer BRENDEN 1-40 homogeneous. All her other antibodies including RF, anti CCP, ADELA are negative. Medication History: Topical diclofenac Tramadol [facility] Medical History (Updated 03/26/24 @ 10:18 by Kiesha Mann MD) Carpal tunnel syndrome, bilateral Urine incontinence Uterine prolapse Osteoarthritis long-term current use of non-steroidal anti-inflammatories (NSAID) Abdominal hernia H/O diverticulitis of colon Surgical History Hx of resection of large bowel History of arthroscopy of left knee H/O colonoscopy History of intestinal surgery History of partial hysterectomy Hx of knee surgery Family History Father Heart attack Mother Colon cancer Diabetes Social History Alcohol intake: current Alcohol intake frequency: holidays/special occasions only Patient Tobacco Use Status: Former Tobacco user Current occupational status: employed Current occupation: [employer] Sexual orientation: Straight/Heterosexual Gender identity: Female Review of Systems Const Details: Review of Systems Constitutional: Denies fever, chills, weight loss ENT: Denies vision changes, eye pain or eye redness, dental caries, dry mouth GI: Denies nausea, vomiting, diarrhea, abdominal pain, change in BM Pulm: Denies SOB, THOMAS, hemoptysis, wheezing Cards: Denies chest pain, palpitations Skin: Denies Raynaud's, rash, nail changes, photosensitivity, ELECTRONICS SPECIALIST: Denies headaches, weakness, paresthesias, recurrent falls MSK: Complains of joint pain and joint stiffness. Denies joint swelling, muscle weakness, bone pain All other systems reviewed and are unremarkable except noted above Physical Exam Vital Signs: Last Vital Signs Pulse 70 03/26/24 08:47 BP 120/66 03/26/24 08:47 Pulse Ox 100 03/26/24 08:47 Oxygen Delivery Method Room Air 03/26/24 08:47 BMI result Body Mass Index 26.6 Const Other: Physical Examination Patient well appearing and in no apparent painful distress Able to rise from chair without support. ?Gait normal. Constitutional: ?Mucous membranes pink and moist patient alert and cooperative HEENT: ?Conjunctiva and sclera clear. ?Pupils equal round and reactive to light. ?No lymphadenopathy. ?Normal dentition. Resp: ?Normal respiratory effort and able to speak in complete sentences. ?Clear to auscultation bilaterally. ?No crackles, rales, rhonchi, wheezes heard. Cards: ?Regular rate and rhythm. ?S1 and S2 heard no murmurs. ?Radial pulses intact bilaterally MSK: ?No deformity, swelling, abnormalities noted to bilateral hands. ?No evidence of synovitis. ?Able to move all joints with full range of motion, without limitation. Mild swelling to the thenar eminence of the right hand. Positive Tinel's test bilaterally. Bilateral knee crepitation. Office Procedures Joint Injection/Aspiration Joint Injection/Aspiration Details: Procedure was explained to the patient and consent was obtained. ? The area of interest was identified and confirmed with patient. ?This was subsequently cleaned with chlorhexidine x3. ? The area was then anesthetized using ethyl chloride spray. 40 mg Kenalog with 1 cc 1% lidocaine was injected without issue. ?Minimal to no bleeding. ?Patient tolerated procedure. Primary Site: right knee Secondary Site: left knee Prep: site was prepped using aseptic technique Injected: 40 mg of, with 1 mL of and 1% plain lidocaine Approach Used: lateral parapatellar Procedure: The patient tolerated the procedure well Coding 32083 - Large joint Procedure code (CPT) selection complete Results Reviewed Results Reviewed: Laboratory Tests 12/15/18 08/01/21 03/08/24 12:35 08:15 08:28 WBC 4.8 4.9 RBC 4.42 4.65 Hgb 13.4 14.1 Hct 39.8 43.3 MCV 90.2 93.1 MCH 30.4 30.3 MCHC 33.7 32.6 Plt Count 223 221 ESR 12 6 Sodium 141 143 Potassium 4.6 4.4 Chloride 106 106 Carbon Dioxide 28 30 H Anion Gap 12 11 L BUN 15 21 H Creatinine 0.86 0.82 Calcium 9.7 D 10.0 Total Bilirubin 0.6 0.3 AST 17 20 ALT 12 15 Alkaline Phosphatase 61 72 C-Reactive Protein 0.15 Total Protein 7.0 7.2 Albumin 4.4 4.3 Results reviewed Assessment & Plan Assessment & Plan (1) Osteoarthritis of knees, bilateral: Code(s): M17.0 - Bilateral primary osteoarthritis of knee Category: Medical Qualifiers: Osteoarthritis type: primary Qualified Code(s): M17.0 - Bilateral primary osteoarthritis of knee Plan: #Knee OA Patient with bilateral knee OA presenting with pain S/p bilateral knee steroid injections Advised ice today Continue topical diclofenac (2) Osteoarthritis of hands, bilateral: Code(s): M19.041 - Primary osteoarthritis, right hand; M19.042 - Primary osteoarthritis, left hand Category: Medical Qualifiers: Osteoarthritis type: primary Qualified Code(s): M19.041 - Primary osteoarthritis, right hand; M19.042 - Primary osteoarthritis, left hand Plan: #Bilateral hand OA Stable Continue topical diclofenac use (3) Carpal tunnel syndrome, bilateral: Code(s): G56.03 - Carpal tunnel syndrome, bilateral upper limbs Category: Medical Plan: #Carpal Tunnel Syndrome Bilateral Wrists (Left > Right) Still with persistent pain and numbness Would be interested in US guided carpal tunnel injection of the left wrist Will try to schedule In the meantime continue wrist splints (4) Medication monitoring encounter: Comment: Tramadol pain contract updated 06/04/2022 Code(s): Z51.81 - Encounter for therapeutic drug level monitoring Category: Medical Plan: #Long-term tramadol use Discussed with patient the benefits and risks for tramadol Benefits include improved pain and mobility Risks include constipation, dry mouth and drowsiness (5) long-term current use of non-steroidal anti-inflammatories (NSAID): Code(s): Z79.1 - assistant terminal manager (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) use of non-steroidal anti-inflammatories (NSAID) Category: Medical Plan: #Topical Diclofenac Though this is topical there can still be some systemic absorption Plan I spent 45 minutes reviewing the record and labs, seeing the patient, discussing the treatment plan, performing procedures and documenting in the medical record Orders: Orders Erythrocyte Sedimentation Rate 6 Months G56.03 - Carpal tunnel syndrome, bilateral upper limbs, M19.041 - Primary osteoarthritis, right hand, M19.042 - Primary osteoarthritis, left hand, Z51.81 - Encounter for therapeutic drug level monitoring, Z79.1 - long-term (current) use of non-steroidal anti-inflammatories (NSAID) C Reactive Protein 6 Months G56.03 - Carpal tunnel syndrome, bilateral upper limbs, M19.041 - Primary osteoarthritis, right hand, M19.042 - Primary osteoarthritis, left hand, Z51.81 - Encounter for therapeutic drug level monitoring, Z79.1 - long-term (current) use of non-steroidal anti-inflammatories (NSAID) Comprehensive Met. Panel 6 Months G56.03 - Carpal tunnel syndrome, bilateral upper limbs, M19.041 - Primary osteoarthritis, right hand, M19.042 - Primary osteoarthritis, left hand, Z51.81 - Encounter for therapeutic drug level monitoring, Z79.1 - long-term (current) use of non-steroidal anti-inflammatories (NSAID) AMB Joint Injection/Aspiration Today M17.0 - Bilateral primary osteoarthritis of knee Complete Blood Count Auto Diff 6 Months G56.03 - Carpal tunnel syndrome, bilateral upper limbs, M19.041 - Primary osteoarthritis, right hand, M19.042 - Primary osteoarthritis, left hand, Z51.81 - Encounter for therapeutic drug level monitoring, Z79.1 - long-term (current) use of non-steroidal anti-inflammatories (NSAID) Medications: Refilled diclofenac sodium 1% 1 g topical BID 100 grams 3RF M19.041 - Primary osteoarthritis, right hand, M19.042 - Primary osteoarthritis, left hand Coding Level of Care Code Est Pt Level 4 (87010) Diagnoses Primary osteoarthritis of both knees M17.0 Osteoarthritis type: primary Primary osteoarthritis of both hands M19.041; M19.042 Osteoarthritis type: primary Carpal tunnel syndrome, bilateral G56.03 Medication monitoring encounter Z51.81 long-term current use of non-steroidal anti-inflammatories (NSAID) Z79.1 CPT Codes Coding - 10854 Large joint: 47304 - Large joint ([id number])
== END 2024-03-26 09:57 | disposition home or self-care (01) ==
PROVIDERS: PCP Internal Medicine; Visit Provider Student in an Organized Health Care Education/Training Program
DX: M17.0 Bilateral primary osteoarthritis of knee (principal); M19.041 Primary osteoarthritis, right hand; M19.042 Primary osteoarthritis, left hand; G56.03 Carpal tunnel syndrome, bilateral upper limbs; Z51.81 Encounter for therapeutic drug level monitoring; Z79.1 Long term (current) use of non-steroidal anti-inflammatories (NSAID)
CPT/HCPCS: 20610; 99215

== ENCOUNTER → 2024-03-26 08:45 | Outpatient (BNVA) | payer MEDICARE, SELFPAY | PROVIDERS: PCP Internal Medicine; Visit Provider Student in an Organized Health Care Education/Training Program | DX: M17.0 Bilateral primary osteoarthritis of knee (principal); G56.03 Carpal tunnel syndrome, bilateral upper limbs; M19.041 Primary osteoarthritis, right hand; M19.042 Primary osteoarthritis, left hand; Z51.81 Encounter for therapeutic drug level monitoring; Z79.1 Long term (current) use of non-steroidal anti-inflammatories (NSAID) | CPT/HCPCS: 20610; 99212 ==

== ENCOUNTER 2024-06-25 08:31 | Outpatient (REF) | payer MEDICARE, SELFPAY ==
--- OUTSIDE RECORDS SUMMARY | 2024-06-25 08:45 | XMS_ITS ---
Author Organization [facility] Address [address] [place] [address] Care Team Providers Care Hand Sample Maker Name Role Phone Dejon Mccray Primary Care Provider Volodymyr Sloan Jr Unavailable REASON FOR VISIT screening colon Encounters Encounter Location Date Provider Diagnosis [facility] [place] Outpatient [address], [place] [phone] 10/03/2023 Volodymyr Harley Jr Encounter for screening colonoscopy Z12.11 ; Family history of colon cancer Z80.0 and Colon polyps K63.5 ASSESSMENTS Encounter Date Diagnosis Assessment Notes Treatment Notes Treatment Clinical Notes 10/03/2023 Encounter for screening colonoscopy (ICD-10 - Z12.11) 10/03/2023 Family history of colon cancer (ICD-10 - Z80.0) 10/03/2023 Colon polyps (ICD-10 - K63.5) PLAN OF TREATMENT No Information
--- OUTSIDE RECORDS SUMMARY | 2024-06-25 08:45 | XMS_ITS ---
Author Organization [facility] Address [address] [place] [address] Care Team Providers Care Rubber Press Tender Name Role Phone Dejon Mccray Primary Care Provider Volodymyr Sloan Jr Unavailable ALLERGIES Allergen (clinical drug ingredient) Drug/Non Drug Allergy documented on EMR Reaction Allergy Type Onset Date Status pregabalin Lyrica Unknown Drug Allergy Active REASON FOR VISIT Patient presents today for a COLON RECALL MEDICATIONS Medication SIG (Take, Route, Frequency, Duration) Notes Start Date End Date Status Baclofen 10 MG Oral for 90 Act ricardo Diclofenac Sodium 1 % USE 1 GRAM TOPICAL LY 2 TIMES A DAY APPLY TO THUMBS JOINT TWICE DAY External for 30 Active traMADol HCl 50 MG 2 tablet Orally QID Active Gabapentin 300 MG 1 capsule qam and 2 qpm Orally daily Active Excedrin Extra Strength 250-250-65 MG 2 tablets Orally Once a day for 30 day(s) Not-Taking MiraLax (colon prep) 17 GM/SCOOP mixed with Gatorade or Crystal Light Orally begin at 5:00 p.m. the day before the procedure for 1 day 07/30/2023 Active PROBLEMS Problem Type ICD Code Onset Dates Problem Status W/U Status Risk SNOMED Code Notes Problem Encounter for long-term (current) use of NSAIDs (Z79.1) Active confirmed 935428391 VITAL SIGNS BMI 27.02 kg/m2 07/30/2023 Blood pressure systolic 00 mm Hg 07/30/19 24 Blood pressure diastolic 00 mm Hg 024 Height 66.5 in 07/30/2023 Temperature 97.8 degrees Fahrenheit 07/30/19 24 Weight 170 lbs 07/30/2023 Encounters Encounter Location Date Provider Diagnosis [facility] [address] [place] [address] 07/30/2023 Volodymyr Harley Jr Colon cancer screening Z12.11 ; Encounter for other preprocedural examination Z01.818 ; Family history of colon cancer Z80.0 and Encounter for long-term (current) use of NSAIDs Z79.1 ASSESSMENTS Encounter Date Diagnosis Assessment Notes Treatment Notes Treatment Clinical Notes 07/30/2023 Colon cancer screening (ICD-10 - Z12.11) Colonoscopy material was printed 07/30/2023 Encounter for other preprocedural examination (ICD-10 - Z01.818) 07/30/2023 Family history of colon cancer (ICD-10 - Z80.0) 07/30/2023 Encounter for long-term (current) use of NSAIDs (ICD-10 - Z79.1) PLAN OF TREATMENT Medication Medication Name Sig Start Date Stop Date Notes MiraLax (colon prep) 17 GM/SCOOP mixed with Gatorade or Crystal Light Orally begin at 5:00 p.m. the day before the procedure for 1 day 07/30/2023 Treatment Notes Assessment Notes Colon cancer screening Colonoscopy mater ial was printed Future Test Test Name Order Date COLONOSCOPY 07/30/2023 Next Appt Details Follow Up: 1 Year, Reason: Progress Notes * Examination Category Sub-Category Detail Notes General Examination GENERAL APPEARANCE: in no ac christina distress HEAD: normocephalic EYES: sclera non-icteric NECK/THYROID: no lymphadenopathy HEART: S1, S2 normal, no mu rmurs CHEST: normal shape and exp ansion LUNGS: clear to auscultatio n bilaterally ABDOMEN: soft, nontender, non distended, bowel sounds present, no organomegaly SKIN: anicteric EXTREMITIES: no clubbing, cyanosi s, or edema PSYCH: cognitive function i ntact ORAL CAVITY: mucosa moist
--- OUTSIDE RECORDS SUMMARY | 2024-06-25 08:45 | XMS_ITS | Patient Health Record ---
Author Organization [facility] Address [address] [place] [address] Care Team Providers Care Patient Companion Name Role Phone Dejon Mccray Primary Care Provider Volodymyr Sloan Jr Unavailable [phone] ALLERGIES Allergen (clinical drug ingredient) Drug/Non Drug Allergy documented on EMR Reaction Allergy Type Onset Date Status pregabalin Lyrica Unknown Drug Allergy Active RESULTS Component Value Reference Range Notes Pathology Reviewed date:10/16/2023 09:55:15 AM Interpretation: Performing Lab:[facility], [place], [address] [place] [id number] Notes/Report: REASON FOR REFERRAL No Information MEDICATIONS Medication SIG (Take, Route, Frequency, Duration) Notes Start Date End Date Status Baclofen 10 MG Oral for 90 Act ricardo Diclofenac Sodium 1 % USE 1 GRAM TOPICAL LY 2 TIMES A DAY APPLY TO THUMBS JOINT TWICE DAY External for 30 Active Excedrin Extra Strength 250-250-65 MG 2 tablets Orally Once a day for 30 day(s) Not-Taking traMADol HCl 50 MG 2 tablet Orally QID Active Gabapentin 300 MG 1 capsule qam and 2 qpm Orally daily Active MiraLax (colon prep) 17 GM/SCOOP mixed with Gatorade or Crystal Light Orally begin at 5:00 p.m. the day before the procedure for 1 day 07/30/2023 Active IMMUNIZATIONS Vaccine Route Administration Date Status Comme nts Influenza Unknown 03/13/2022 Administered SOCIAL HISTORY Sex Assigned At : Social History Observation Description Sex Assigned At Unknown PROBLEMS Problem Type ICD Code Onset Dates Problem Status W/U Status Risk SNOMED Code Notes Problem Colon cancer screening (Z12.11) Active confirmed 921818582 Problem Family history of colon cancer (Z80.0) Active confirmed 700814448 Problem Encounter for other preprocedural examination (Z01.818) Active confirmed 69948884 Problem Encounter for long-term (current) use of NSAIDs (Z79.1) Active confirmed 360093410 VITAL SIGNS Temperature 97.8 degrees Fahrenheit 07/30/2023 Blood pressure diastolic 00 mm Hg 07/30/2023 Height 66.5 in 07/30/2023 Blood pressure systolic 00 mm Hg 07/30/2023 Weight 170 lbs 07/30/2023 BMI 27.02 kg/m2 07/30/2023 Encounters Encounter Location Date Provider Diagnosis [facility] Outpatient [address] [place] [id number] 10/03/2023 Volodymyr Harley Jr Encounter for screening colonoscopy Z12.11 ; Family history of colon cancer Z80.0 and Colon polyps K63.5 [facility] [address] [place] [address] 07/30/2023 Volodymyr Harley Jr Colon cancer screening Z12.11 ; Encounter for other preprocedural examination Z01.818 ; Family history of colon cancer Z80.0 and Encounter for long-term (current) use of NSAIDs Z79.1 [facility] [address] [place] [phone] 10/16/2023 Volodymyr Harley Jr ASSESSMENTS Encounter Date Diagnosis Assessment Notes Treatment Notes Treatment Clinical Notes 10/03/2023 Encounter for screening colonoscopy (ICD-10 - Z12.11) 10/03/2023 Family history of colon cancer (ICD-10 - Z80.0) 07/30/2023 Colon cancer screening (ICD-10 - Z12.11) Colonoscopy material was printed 07/30/2023 Encounter for other preprocedural examination (ICD-10 - Z01.818) 10/03/2023 Colon polyps (ICD-10 - K63.5) 07/30/2023 Family history of colon cancer (ICD-10 - Z80.0) 07/30/2023 Encounter for long-term (current) use of NSAIDs (ICD-10 - Z79.1) PLAN OF TREATMENT Future Test Test Name Order Date COLONOSCOPY 08/23/2016 COLONOSCOPY 08/07/2022 COLONOSCOPY 07/30/2023 Insurance Providers Payer Name Payer Address Payer Phone Subscriber Number Group Number Insured Name Patient Relationship to Insured Coverage Start Date Coverage End Date KEVIN (NEEDS REFERRAL) [address] [place] [address] [id number] LON KENNEDY Self - patient is the insured MEDICARE OF [place] [address] [place] [address] [id number] LON KENNEDY Self - patient is the insured 4 MEDICAL (GENERAL) HISTORY Medical History History ICD Code Colon polyps, colonoscopy 01/21/17, five-year followup for family history of colon cancer Diverticular disease insomnia osteoarthritis, sciatica Uterine prolapse/stress urinary incontin ence Surgical History Surgery Date(Month/Year) left knee arthroscopy 2008 Sigmoid resection for diverticular absce ss 2010 Hysterectomy/suspension/anterior posteri or repair for prolapse 10/09
--- OUTSIDE RECORDS SUMMARY | 2024-06-25 08:45 | XMS_ITS ---
Author Organization [facility] Address [address] [place] [address] Care Team Providers Care School Child Care Attendant Name Role Phone Dejon Mccray Primary Care Provider Volodymyr Sloan Jr REASON FOR VISIT pathology Encounters Encounter Location Date Provider Diagnosis [facility] [address] [place] [address] 10/16/2023 Volodymyr Harley Jr PLAN OF TREATMENT No Information
--- NOTE | 2024-06-25 09:40 | PCN2_ITS ---
Brief Operative Note Date of procedure: 06/25/24 Pre-op diagnosis: Carpal tunnel left wrist Post-op diagnosis: same Procedure: Date: 06/25/2024 Study Type: Limited Ultrasound with Guidance of needle placement Indication: Carpal tunnel syndrome Study Site: Left wrist Equipment: Kavitha iU22, Linear probe L12-5 Brief History: Patient with polyarticular osteoarthritis and bilateral carpal tunnel syndrome. Positive BRENDEN without any evidence of autoimmune connective tissue disease Relevant meds: ?Not currently on prednisone or any other NSAIDs Relevant labs: BRENDEN 1:40 XR Images reviewed: Bilateral hand x-rays 07/2022 Findings: ?Orthogonal views of the palmar aspect of the left wrist was obtained in grayscale and Doppler. Procedure: ?After obtaining informed consent for an ultrasound-guided gluc ocorticoid injection of the left wrist, the median nerve was imaged with ultrasound. Diameter was 0.239m2 consistent with increased diameter. The left palmar wrist was sterilely prepped with chlorhexidine and anesthetized with lidocaine spray. ?A 22 gauge 1.5 in needle was advanced into the inferior to the median nerve under direct ultrasound visualization using in plane technique. ?40 mg of triamcinolone with 0.5cc 2% lidocaine was injected through the same needle. ?The procedure was well tolerated. Impressions: ?Enlarged median nerve consistent with left carpal tunnel syndrome. Successful injection of the left median nerve using ultrasound guidance Condition: stable Disposition: no change
[2024-06-25] MEDS: Lidocaine HCl 2 % 20 ML VIAL 10 ML SUBCUT (10:29)
[2024-06-25] MEDS: Triamcinolone Acetonide 40 MG/ML VIAL INTRAARTIC (10:30)
== END 2024-06-25 08:32 | disposition home or self-care (01) ==
LOC: HO.US 08:31
PROVIDERS: PCP Internal Medicine; Visit Provider Student in an Organized Health Care Education/Training Program
DX: G56.03 Carpal tunnel syndrome, bilateral upper limbs (principal)
CPT/HCPCS: 20526; 76942; J2003; J3301

== ENCOUNTER → 2024-06-25 08:31 | Outpatient (BNV) | payer MEDICARE, SELFPAY | PROVIDERS: PCP Internal Medicine; Visit Provider Student in an Organized Health Care Education/Training Program | DX: G56.02 Carpal tunnel syndrome, left upper limb (principal) | CPT/HCPCS: 20526; 76942 ==

== ENCOUNTER 2024-09-25 08:09 | Outpatient (REF) | payer MEDICARE, SELFPAY ==
--- OUTSIDE RECORDS SUMMARY | 2024-09-25 08:12 | XMS_ITS ---
Author Organization [facility] Address [address] [place] [address] Care Team Providers Care Laboratory Secretary Name Role Phone Dejon Mccray Primary Care Provider Volodymyr Sloan Jr REASON FOR VISIT pathology Encounters Encounter Location Date Provider Diagnosis [facility] [address] [place] [address] 10/16/2023 Volodymyr Harley Jr Plan Of Treatment No Information Progress Notes * ULI KENNEDYB:1960 (63 yo F)Acc No.[id number]:10/16/2023 Patient:?EVANS KENNEDYNDA :1960???Age:63 Y???Sex:Female Address:[address] [place] [address] * true * Date:? Generated for Donna gomez/Syed/eTransmitting on:?09/25/2024 08:12 AM EDT
--- OUTSIDE RECORDS SUMMARY | 2024-09-25 08:12 | XMS_ITS ---
Author Organization [facility] Address [address] [place] [address] Care Team Providers Care Small Business Director Name Role Phone Dejon Mccray Primary Care Provider Volodymyr Sloan Jr REASON FOR VISIT screening colon Encounters Encounter Location Date Provider Diagnosis [facility] [address] [place], [place] [phone] 10/03/2023 Volodymyr Harley Jr Encounter for screening colonoscopy Z12.11 ; Family history of colon cancer Z80.0 and Colon polyps K63.5 Assessments Encounter Date Diagnosis (ICD Code) Assessment Notes Treatment Notes Treatment Clinical Notes Section Notes 10/03/2023 Encounter for screening colonoscopy (ICD-10 - Z12.11) 10/03/2023 Family history of colon cancer (ICD-10 - Z80.0) 10/03/2023 Colon polyps (ICD-10 - K63.5) Plan Of Treatment No Information Progress Notes * ULI KENNEDYB:1960 (63 yo F)Acc No.[id number]:10/03/2023 COLON WITH MAC Patient:?LON KENNEDY Provider:?Volodymyr Harley MD :1960???Age:63 Y???Sex:Female D ate:10/03/2023 Address:[address] [place], [place] [address] Pcp:Dejon Mccray Subjective: * Chief Complaints: * ???1. Screening colon. * Medical History:? Objective: * Vitals:? Assessment: * Assessment: 1.?Encounter for screening c olonoscopy - Z12.11 (Primary)???2.?Family history of colon cancer - Z80.0???3.?Colon polyps - K63.5??? Plan: * Treatment: * Procedure Codes:?09542 LESIO N REMOVAL COLONOSCOPY, 99345 COLONOSCOPY AND BIOPSY, Modifiers: 59 * * The named appointment provid er may or may not be the originator of this progress note, and it is not deemed complete until electronically signed by the appointment provider. Sign off status: Pending * Provider:?Volodymyr Harley MD Date:?0 10/03/2023 Generated for Donna gomez/Syed/eTransmitting on:?09/25/2024 08:12 AM EDT
--- OUTSIDE RECORDS SUMMARY | 2024-09-25 08:12 | XMS_ITS ---
Author Organization [facility] Address [address] [place] [address] Care Team Providers Care Instructor Military Science Name Role Phone Dejon Mccray Primary Care Provider Volodymyr Sloan Jr Unavailable Allergies Allergen (clinical drug ingredient) Drug/Non Drug Allergy documented on EMR Reaction Allergy Type Onset Date Status pregabalin Lyrica Unknown Drug Allergy Active REASON FOR VISIT Patient presents today for a COLON RECALL Medications Medication SIG (Take, Route, Frequency, Duration) Notes [...] the procedure for 1 day 07/30/2023 Active Problems Problem Type SNOMED Code ICD Code Onset Dates Problem Status W/U Status Risk Notes Problem [id number] Encounter for long-term (current) use of NSAIDs (Z79.1) Active confirmed Vital Signs Temperature 97.8 degrees Fahrenheit 07/30/19 24 Blood pressure systolic 00 mm Hg 07/30/19 24 Blood pressure diastolic 00 mm Hg 024 Height 66.5 in 07/30/2023 Weight 170 lbs 07/30/2023 BMI 27.02 kg/m2 07/30/2023 Encounters Encounter Location Date Provider Diagnosis [facility] [address] [place] [address] 07/30/2023 Volodymyr Harley Jr Colon cancer screening Z12.11 ; Encounter for other preprocedural examination Z01.818 ; Family history of colon cancer Z80.0 and Encounter for long-term (current) use of NSAIDs Z79.1 Assessments Encounter Date Diagnosis (ICD Code) Assessment Notes Treatment Notes Treatment Clinical Notes Section Notes 07/30/2023 Colon cancer screening (ICD-10 - Z12.11) Colonoscopy material was printed We discussed colonoscopy today. We discussed risks and benefits of the procedure today. She understands these and agrees to proceed. This will be scheduled at her convenience. She is advised to stop tramadol and diclofenac one week before the procedure. 07/30/2023 Encounter for other preprocedural examination (ICD-10 - Z01.818) We discussed colonoscopy today. We discussed risks and benefits of the procedure today. She understands these and agrees to proceed. This will be scheduled at her convenience. She is advised to stop tramadol and diclofenac one week before the procedure. 07/30/2023 Family history of colon cancer (ICD-10 - Z80.0) We discussed colonoscopy today. We discussed risks and benefits of the procedure today. She understands these and agrees to proceed. This will be scheduled at her convenience. She is advised to stop tramadol and diclofenac one week before the procedure. 07/30/2023 Encounter for long-term (current) use of NSAIDs (ICD-10 - Z79.1) We discussed colonoscopy today. We discussed risks and benefits of the procedure today. She understands these and agrees to proceed. This will be scheduled at her convenience. She is advised to stop tramadol and diclofenac one week before the procedure. Plan Of Treatment Medication Medication Name Sig Start Date Stop [...] Up: 1 Year, Reason: Progress Notes * JACQUELINE KENNEDY:1960 (62 yo F)Acc No.[id number]:07/30/2023 Progress Notes Patient:?ALEXUS KENNEDY Provider:?Volodymyr Harley MD :1960???Age:62 Y???Sex:Female D ate:07/30/2023 Address:[address] [place], [place] [id number] Pcp:Dejon Mccray Subjective: * Chief Complaints: * ???1. Patient presents today for a COLON RECALL. * HPI: ???New symptom(s):? Alexus is a pleasant 62-year-old woman seen today for her preoperative colonoscopy visit. She has no complaints of rectal bleeding or change in her bowel habits. She does have a family history of colon cancer and is due for followup colonoscopy. Previous colonoscopy in 2017 was negative for polyps. We reviewed this today. * ROS:?General/Constitutional:?Change in appetite?denies.?Fatigue?denies.?ENT:?Patient denies?difficulty swallowing.?Respiratory:?Patient denies?shortness of breath.?Cardiovascular:?Patient denies?chest pain.?Gastrointestinal:?Comments?See HPI for details.?Genitourinary:?Difficulty urinating?denies.?Incontinence?denies.?Musculoskeletal:?Patient denies?muscle aches.?Skin:?Patient denies?pruritis.?Neurologic:?Patient denies?low back pain.?Psychiatric:?Patient denies?mental or physical abuse.? * Medical History:?Colon polyp s, colonoscopy 01/21/17, five-year followup for family history of colon cancer, Diverticular disease, Insomnia osteoarthritis, sciatica, Uterine prolapse/stress urinary incontinence. * Surgical History:?left knee arthroscopy 2008, Sigmoid resection for diverticular abscess 2010, Hysterectomy/suspension/anterior posterior repair for prolapse 10/09. * Family History:?Father: dece ased, diagnosed with Heart disease.?Mother: , dx in her 60's, diagnosed with Diabetes, HTN (hypertension), Colon cancer.? * Social History:?Tobacco Use:?Tobacco Use/Smoking?Patient is a: former smoker , How long has it been since you last smoked?: 1-5 years.?Drugs/Alcohol:?Alcohol Screen?Points: 1, Interpretation: Negative.?Miscellaneous:?Marital status: . 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 * Medications:?Taking Gabapent in 300 MG Capsule 1 capsule qam and 2 qpm Orally daily, Taking traMADol HCl 50 MG Tablet 2 tablet Orally QID, Taking Baclofen 10 MG Tablet Oral , Taking Diclofenac Sodium 1 % Gel USE 1 GRAM TOPICALLY 2 TIMES A DAY APPLY TO THUMBS JOINT TWICE DAY External , Not-Taking/PRN Excedrin Extra Strength 250-250-65 MG Tablet 2 tablets Orally Once a day, Discontinued MiraLax (colon prep) 17 GM/SCOOP Powder mixed with Gatorade or Crystal Light Orally begin at 5:00 p.m. the day before the procedure, Medication List reviewed and reconciled with the patient * Allergies:?Lyrica. Objective: * Vitals:?Wt: 170 lbs, Ht: 66. 5 in, BMI:27.02 Index, BP: 00/00 mm Hg, Temp: 97.8. * Examination: ???General Examination: ?GENERAL APPEARANCE:?in no acute distress.?HEAD:?normocephalic.?EYES:?sclera non-icteric.?ORAL CAVITY:?mucosa moist.?NECK/THYROID:?no lymphadenopathy.?SKIN:?anicteric.?HEART:?S1, S2 normal, no murmurs.?LUNGS:?clear to auscultation bilaterally.?CHEST:?normal shape and expansion.?ABDOMEN:?soft, nontender, nondistended, bowel sounds present, no organomegaly .?EXTREMITIES:?no clubbing, cyanosis, or edema.?PSYCH:?cognitive function intact.? Assessment: * Assessment: 1.?Encounter for other prepr ocedural examination - Z01.818 (Primary)?2.?Colon cancer screening - Z12.11?3.?Family history of colon cancer - Z80.0?4.?Encounter for long-term (current) use of NSAIDs - Z79.1? We discussed colonoscopy tod ay. We discussed risks and benefits of the procedure today. She understands these and agrees to proceed. This will be scheduled at her convenience. She is advised to stop tramadol and diclofenac one week before the procedure. Plan: * Treatment: Notes: Colonoscopy material was printed.??2.?Family history of colon cancer?Procedure: COLONOSCOPY (Ordered for 07/30/2023)* SCHEDULED COLON AT [facility] [place] AT 8:20 * Procedure Codes:?3017F COLOR ECTAL CA SCREEN DOC REV, G9745 DOC RSN FOR NOT SCREEN/REC F/U HBP * Preventive Medicine:? ??Counseling:?Care goal follow-up plan:?Above Normal BMI Follow-up?Giving encouragement to exercise,?BMI management provided?Yes.? ??Urinary Incontinence:?Urinary Incontinence?Assessment:?Present mild ,?Plan of care documented:?Yes.? * Follow Up:?1 Year * * Sign off status: Completed true * Provider:?Volodymyr Harley MD Date:?0 07/30/2023 Generated for Donna gomez/Syed/Pilo on:?09/25/2024 08:12 AM EDT History and Physical Notes * HPI (History of Present Illness) Category Sub-Category Detail Notes Category Not es New symptom(s) Alexus is a p leasant 62-year-old woman seen today for her preoperative colonoscopy visit. She has no complaints of rectal bleeding or change in her bowel habits. She does have a family history of colon cancer and is due for followup colonoscopy. Previous colonoscopy in 2017 was negative for polyps. We reviewed this today. Examination Category Sub-Category Detail Notes Category Not es General Examination GENERAL APPEARANCE: in no acute di stress HEAD: normocephalic EYES: sclera non-icteric NECK/THYROID: no lymphadenopathy HEART: S1, S2 normal, no mu rmurs CHEST: normal shape and exp ansion LUNGS: clear to auscultatio n bilaterally ABDOMEN: soft, nontender, non distended, bowel sounds present, no organomegaly SKIN: anicteric EXTREMITIES: no clubbing, cyanosi s, or edema PSYCH: cognitive function i ntact ORAL CAVITY: mucosa moist
[2024-09-25 08:30] LABS: MANUAL DIFF FLAG NO
[2024-09-25 08:41] LABS: Basophils Percent Auto 0.8 % (0-2); Eosinophils Absolute Auto 0.2 X10*3/uL (0.0-0.4); Eosinophils Percent Auto 3.4 % (0-4); Hematocrit 45.6 % (37.0-47.0); Hemoglobin 14.5 g/dl (12.0-16.0); Imm Gran Abs Auto 0.01 X10*3/uL (0.00-0.03); Imm Gran Pct Auto 0.2 % (0.0-0.4); Lymphocytes Absolute Auto 1.4 X10*3/uL (1.2-4.9); Mean Corpuscular HGB Conc 31.8 g/dl (31.0-35.0); Mean Corpuscular Hemoglobin 29.4 pg (27.0-33.0); Mean Corpuscular Volume 92.5 fL (80.0-98.0); Monocytes Absolute Auto 0.6 X10*3/uL (0.1-1.2); Monocytes Percent Auto 11.7 % (2-11); Neutrophils Percent Auto 56.9 % (45-73); Platelet Count 237 X10*3/uL (160-400); Red Blood Count 4.93 X10*6/uL (4.20-5.50); Red Cell Distribution Width 14.6 % (11.0-16.0); White Blood Count 5.3 X10*3/uL (4.8-10.8)
[2024-09-25 09:13] LABS: Erythrocyte Sedimentation Rate 7 MM/HR (0-20)
[2024-09-25 09:53] LABS: Alanine Aminotransferase 17 U/L (0-31); Albumin Level 4.4 g/dL (3.5-5.0); Alkaline Phosphatase 61 U/L (39-117); Anion Gap 10 (12-20); Aspartate Amino Transferase 25 U/L (5-31); Bilirubin Total 0.5 mg/dL (0.0-1.0); Blood Urea Nitrogen 22 mg/dL (9-16); C Reactive Protein 0.15 mg/dL (< or = 0.50); Calcium 9.7 mg/dL (8.4-10.2); Carbon Dioxide 29 mmol/L (22-29); Chloride 106 mmol/L (96-108); Estimated Glomerular Filt Rate > 60; Glucose Random 95 mg/dL (60-115); Potassium 4.3 mmol/L (3.3-5.1); Sodium 141 mmol/L (135-145); Total Protein 7.1 g/dL (6.5-8.0)
== END 2024-09-25 08:10 | disposition home or self-care (01) ==
LOC: HO.LAB 08:09
PROVIDERS: PCP Internal Medicine; Visit Provider Student in an Organized Health Care Education/Training Program
DX: M19.041 Primary osteoarthritis, right hand (principal); M19.042 Primary osteoarthritis, left hand; G56.03 Carpal tunnel syndrome, bilateral upper limbs; Z51.81 Encounter for therapeutic drug level monitoring; Z79.1 Long term (current) use of non-steroidal anti-inflammatories (NSAID)
CPT/HCPCS: 36415; 80053; 85025; 85652; 86140

== ENCOUNTER 2024-10-05 07:39 | Outpatient (AMB) | payer MEDICARE, SELFPAY ==
--- OUTSIDE RECORDS SUMMARY | 2024-10-05 07:42 | XMS_ITS ---
Author Organization [facility] Address [address] [place] [address] Care Team Providers Care Human Resources Generalist Name Role Phone Dejon Mccray Primary Care Provider Volodymyr Sloan Jr [phone] REASON FOR VISIT screening colon Encounters Encounter Location Date Provider Diagnosis [facility] [place] [address] [place], [place] [phone] 10/03/2023 Volodymyr Harley Jr Encounter for screening [...] No Information Progress Notes * ULI KENNEDYB:1960 (64 yo F)Acc No.[id number]:10/03/2023 COLON WITH MAC Patient:?LON KENNEDY Provider:?Volodymyr Harley MD :1960???Age:63 Y???Sex:Female D ate:10/03/2023 Address:[address] [place], [place] [address] Pcp:Dejon Mccray Subjective: * Chief Complaints: * ???1. Screening colon. * Medical History:? Objective: * Vitals:? Assessment: * Assessment: 1.?Encounter for screening c olonoscopy - Z12.11 (Primary)???2.?Family history of colon cancer - Z80.0???3.?Colon polyps - K63.5??? Plan: * Treatment: * Procedure Codes:?24890 LESIO N REMOVAL COLONOSCOPY, 21493 COLONOSCOPY AND BIOPSY, Modifiers: 59 * * The named appointment provid er may or may not be the originator of this progress note, and it is not deemed complete until electronically signed by the appointment provider. Sign off status: Pending * Provider:?Volodymyr Harley MD Date:?0 10/03/2023 Generated for Donna gomez/Syed/eTransmitting on:?10/05/2024 07:42 AM EDT
--- OUTSIDE RECORDS SUMMARY | 2024-10-05 07:42 | XMS_ITS | Patient Health Record ---
Author Organization [facility] Address [address] [place] [address] Care Team Providers Care Technical Support Technician Name Role Phone Dejon Mccray Primary Care Provider Volodymyr Sloan Jr Unavailable Allergies Allergen (clinical drug ingredient) Drug/Non Drug Allergy documented on EMR Reaction Allergy Type Onset Date Status pregabalin Lyrica Unknown Drug Allergy Active Reason For Referral No Information Medications Medication SIG (Take, Route, Frequency, Duration) [...] the procedure for 1 day 07/30/2023 Active Immunizations Vaccine Route Administration Date Status Comme nts Influenza Unknown 03/13/2022 Administered Problems Problem Type SNOMED Code ICD Code Onset Dates Problem Status W/U Status Risk Notes Problem 548400391 Colon cancer screening (Z12.11) Active confirmed Problem 05282422 Encounter for other preprocedural examination (Z01.818) Active confirmed Problem 403507233 Encounter for long-term (current) use of NSAIDs (Z79.1) Active confirmed Problem 625314817 Family history o f colon cancer (Z80.0) Active confirmed Encounters Encounter Location Date Provider Diagnosis [facility] [address] [place] [address] 10/16/2023 Volodymyr Harley Jr Plan Of Treatment Future Test Test Name Order Date COLONOSCOPY 08/23/2016 COLONOSCOPY 08/07/2022 COLONOSCOPY 07/30/2023 Insurance Providers Payer Name Payer Address Payer Phone Subscriber Number Group Number Insured Name Patient Relationship to Insured Coverage Start Date Coverage End Date KEVIN (NEEDS REFERRAL) [address] [place] [address] [id number] LON KENNEDY Self - patient is the insured MEDICARE OF [place] [address] [facility] [place] [address] [id number] LON KENNEDY Self - patient is the insured 4 Medical (General) History Medical History History ICD Code Colon polyps, colonoscopy 01/21/17, five-year followup for family history of colon cancer Diverticular disease insomnia osteoarthritis, sciatica Uterine prolapse/stress urinary incontin ence Surgical History Surgery Date(Month/Year) left knee arthroscopy 2008 Sigmoid resection for diverticular absce ss 2010 Hysterectomy/suspension/anterior posteri or repair for prolapse 10/09
--- OUTSIDE RECORDS SUMMARY | 2024-10-05 07:43 | XMS_ITS ---
Author Organization [facility] Address [address] [place] [address] Care Team Providers Care Instrument Fitter Name Role Phone Dejon Mccray Primary Care [...] Problem Status W/U Status Risk Notes Problem 865626588 Encounter for long-term (current) use of NSAIDs (Z79.1) Active confirmed Vital Signs Temperature 97.8 degrees Fahrenheit 07/30/19 24 Blood pressure systolic 00 mm Hg 07/30/19 24 Blood pressure diastolic 00 mm Hg 024 Height 66.5 in 07/30/2023 Weight 170 lbs 07/30/2023 BMI 27.02 kg/m2 07/30/2023 Encounters Encounter Location Date Provider Diagnosis [facility] [address] [place] [address] 07/30/2023 Volodymyr Harley Jr Colon cancer screening [...] Notes * JACQUELINE KENNEDY:1960 (62 yo F)Acc No.[id number]:07/30/2023 Progress Notes Patient:?ALEXUS KENNEDY Provider:?Volodymyr Harley MD :1960???Age:62 Y???Sex:Female D ate:07/30/2023 Address:[address] [place], [place] [id number] Pcp:Dejon Mccray Subjective: * Chief Complaints: * [...] 1, Interpretation: Negative.?Miscellaneous:?Marital status: . 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 * Medications:?Taking Gabapent in 300 MG [...] COLONOSCOPY (Ordered for 07/30/2023)* SCHEDULED COLON AT [facility] [place] AT 8:20 * Procedure Codes:?3017F COLOR [...] MD Date:?0 07/30/2023 Generated for Donna gomez/Syed/Pilo on:?10/05/2024 07:42 AM EDT History and Physical Notes * [...]
--- OUTSIDE RECORDS SUMMARY | 2024-10-05 07:43 | XMS_ITS ---
Author Organization [facility] Address [address] [place] [address] Care Team Providers Care Vmware Systems Administrator Name Role Phone Dejon Mccray Primary Care Provider Volodymyr Sloan Jr [phone] REASON FOR VISIT pathology Encounters Encounter Location Date Provider Diagnosis [facility] [address] [place] [address] 10/16/2023 Volodymyr Harley Jr Plan Of Treatment No Information Progress Notes * ULI KENNEDYB:1960 (63 yo F)Acc No.[id number]:10/16/2023 Patient:?EVANS KENNEDYNDA :1960???Age:63 Y???Sex:Female Address:[address] [place] [address] * true * Date:? Generated for Donna gomez/Syed/eTransmitting on:?10/05/2024 07:42 AM EDT
--- NOTE | 2024-10-05 07:57 | A.OFFVIS_ITS ---
Vital Signs 10/05/24 08:02 Height 5 ft 6.5 in Weight 168 lb 6.931 oz BMI 26.8 BP 132/70 Blood Pressure Location Rt brachial Position Sitting Pulse 59 Pulse Source Pulse Oximeter Pulse Oximetry (%) 98 Oxygen Delivery Method Room Air Intake Visit Reasons: CTS Intake Note: Patient presents today for CTS follow up. Allergies pregabalin Allergy (Intermediate, Verified 10/05/24 08:01) rash, headaches HPI Comments Details: Patient is a 63-year-old female with polyarticular osteoarthritis involving the hands, lower back and occasionally the knees, and bilateral carpal tunnel syndrome who is here today for follow-up. Interval History: Last seen 03/26/2024 with me. At that time she was following up for bilateral carpal tunnel syndrome and polyarticular osteoarthritis. She had left carpal tunnel steroid injection 06/25/2024. Since then patient has noticed improvement to her left carpal tunnel. She had steroid injections to her knees at the last visit but this did not improve her pain. Today, She reports that she is doing overall well. Still complaining of pain to her knees and her legs at the end of the day. Other complaints: 1. Sometimes she will get numbness to the tips of her fingers of the left hand when it is cold but this improves on warming. No ulcers. 2. Sometimes she will get intermittent days of feeling extremely lethargic with whole-body pain and fatigue. But this is self-limited. Denies rashes, photosensitivity, alopecia, oral/nasal ulcers, sicca symptoms, lymphadenopathy, chest pain/shortness of breath, inflammatory type joint pain, foamy urine, lower extremity edema, muscle weakness, Raynaud's Also denies history of seizure, CVA, psychosis, history of kidney problems, history of cytopenias, history of VTE including PE or DVTs Rheumatologic History: Notes for patient is seen as far back as April 2020 where she presented for evaluation of low back pain. Over the years she has been following up with Rheumatology for diagnosis of osteoarthritis. She has a low titer BRENDEN 1-40 homogeneous. All her other antibodies including RF, anti CCP, ADELA are negative. 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-inflammatories (NSAID) Abdominal hernia H/O diverticulitis of colon Surgical History Hx of resection of large bowel History of arthroscopy of left knee H/O colonoscopy History of intestinal surgery History of partial hysterectomy Hx of knee surgery Family History Father Heart attack Mother Colon cancer Diabetes Social History Alcohol intake: current Alcohol intake frequency: holidays/special occasions only Patient Tobacco Use Status: Former Tobacco user Current occupational status: employed Current occupation: [employer] Sexual orientation: Straight/Heterosexual Gender identity: Female Review of Systems Const Details: Review of Systems Constitutional: Denies fever, chills, weight loss ENT: Denies vision changes, eye pain or eye redness, dental caries, dry mouth GI: Denies nausea, vomiting, diarrhea, abdominal pain, change in BM Pulm: Denies SOB, THOMAS, hemoptysis, wheezing Cards: Denies chest pain, palpitations Skin: Denies Raynaud's, rash, nail changes, photosensitivity, LOCATION ANALYST: Denies headaches, weakness, paresthesias, recurrent falls MSK: as per HPI All other systems reviewed and are unremarkable except noted above Physical Exam Vital Signs: Last Vital Signs Pulse 59 10/05/24 08:02 BP 132/70 10/05/24 08:02 Pulse Ox 98 10/05/24 08:02 Oxygen Delivery Method Room Air 10/05/24 08:02 BMI result Body Mass Index 26.8 Vital signs reviewed Physical Examination CONSTITUITIONAL Patient alert and cooperative. Well appearing and in no apparent painful distress HEENT Conjunctiva and sclera clear. ?Pupils equal round and reactive to light. ?No lymphadenopathy. ? CHEST/RESPIRATORY SYSTEM Normal respiratory effort and able to speak in complete sentences. ?Clear to auscultation bilaterally. ?No crackles, rales, rhonchi, wheezes heard. CARDIAC SYSTEM Regular rate and rhythm. ?S1 and S2 heard no murmurs. 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 No deformities noted. ?No synovitis noted to the MCPs, PIPs or DIPs. ?No tenderness to palpation of these joints. Heberden nodes Wrists: ?Full range of motion at the wrists without pain. ?No tenderness to palpation or synovitis noted to the wrists. Elbows: Full range of motion without pain. No tenderness, weakness, swelling, increased warmth or erythema. Shoulders: Full range of motion without pain. No tenderness, weakness, swelling, increased warmth or erythema. Hips: Full range of motion without pain. Hip bursa: No tenderness to palpation Knees: ?Full range of motion. ?No tenderness, swelling, increased warmth or erythema.? Bilateral crepitations felt Ankles: Full range of motion. ?No tenderness, swelling, increased warmth or erythema.? Feet: ?Negative squeeze test. ?No tenderness to palpation or swelling of the MTPs. Tender points:?No tenderness to palpation of the bilateral trapezius, supraspinatus, greater trochanters, anterior costochondral junctions, bilateral gluteal areas, bilateral suboccipital muscle insertions SKIN Skin intact without rashes. Results Reviewed Results Reviewed: Laboratory Tests 09/25/24 08:29 WBC 5.3 RBC 4.93 Hgb 14.5 Hct 45.6 Plt Count 237 ESR 7 Sodium 141 Potassium 4.3 Chloride 106 Carbon Dioxide 29 BUN 22 H Creatinine 0.81 AST 25 ALT 17 Alkaline Phosphatase 61 C-Reactive Protein 0.15 Immunology labs 12/15/18 12:35 Rheumatoid Factor < 15.0 Cycl Citrul Peptide IgG <16 BRENDEN Screen Positive H BRENDEN Titer 1:40 H Anti-ds DNA (Crithidia) Negative Complement C3 134 Complement C4 26 Assessment & Plan Assessment & Plan (1) Osteoarthritis of knees, bilateral: Code(s): M17.0 - Bilateral primary osteoarthritis of knee Category: Medical Qualifiers: Osteoarthritis type: primary Qualified Code(s): M17.0 - Bilateral primary osteoarthritis of knee Plan: #Knee OA Patient is a 64-year-old current everyday smoker with polyarticular osteoarthritis specifically bilateral knee OA. Received steroid injections at the last visit but this did not help. Discussed gel injections with the patient and she will consider them and reach out to the office Plan - Recommended gel injections and patient will consider them and let us know - Continue topical diclofenac - Continue gabapentin 600mg at bedtime - RTC 6 months (2) Osteoarthritis of hands, bilateral: Code(s): M19.041 - Primary osteoarthritis, right hand; M19.042 - Primary osteoarthritis, left hand Category: Medical Qualifiers: Osteoarthritis type: primary Qualified Code(s): M19.041 - Primary osteoarthritis, right hand; M19.042 - Primary osteoarthritis, left hand Plan: #Bilateral hand OA Patient with bilateral hand osteoarthritis currently stable. (3) Carpal tunnel syndrome, bilateral: Code(s): G56.03 - Carpal tunnel syndrome, bilateral upper limbs Category: Medical Plan: #Carpal Tunnel Syndrome Bilateral Wrists (Left > Right) Patient with bilateral carpal tunnel syndrome status post left steroid injection. Patient noting improvement to her numbness of the left wrist post injection. Continue to monitor and use splints as needed (4) Medication monitoring encounter: Comment: Tramadol pain contract updated 06/04/2022 Code(s): Z51.81 - Encounter for therapeutic drug level monitoring Category: Medical Plan: #Long-term tramadol use Discussed with patient the benefits and risks for tramadol Benefits include improved pain and mobility Risks include constipation, dry mouth and drowsiness Plan I spent 30 minutes reviewing the record and labs, seeing the patient, discussing the treatment plan and documenting in the medical record Coding Level of Care Code Est Pt Level 4 (00377) Diagnoses Primary osteoarthritis of both knees M17.0 Osteoarthritis type: primary Primary osteoarthritis of both hands M19.041; M19.042 Osteoarthritis type: primary Carpal tunnel syndrome, bilateral G56.03 Medication monitoring encounter Z51.81
[2024-10-05 08:02] VITALS: BP 132/70; PULSE 59; O2SAT 98; BMI 26.8
== END 2024-10-05 08:30 | disposition home or self-care (01) ==
LOC: HO.RHE 07:39
PROVIDERS: PCP Internal Medicine; Visit Provider Student in an Organized Health Care Education/Training Program
DX: M17.0 Bilateral primary osteoarthritis of knee (principal); M19.041 Primary osteoarthritis, right hand; M19.042 Primary osteoarthritis, left hand; G56.03 Carpal tunnel syndrome, bilateral upper limbs; Z51.81 Encounter for therapeutic drug level monitoring
CPT/HCPCS: 99214

== ENCOUNTER → 2024-10-05 07:39 | Outpatient (BNVA) | payer MEDICARE, SELFPAY | PROVIDERS: PCP Internal Medicine; Visit Provider Student in an Organized Health Care Education/Training Program | DX: M17.0 Bilateral primary osteoarthritis of knee (principal); M19.041 Primary osteoarthritis, right hand; M19.042 Primary osteoarthritis, left hand; G56.03 Carpal tunnel syndrome, bilateral upper limbs; Z51.81 Encounter for therapeutic drug level monitoring | CPT/HCPCS: 99212 ==

== ENCOUNTER 2024-11-25 11:12 | Outpatient (AMB) | payer MEDICARE, SELFPAY ==
--- NOTE | 2024-11-25 11:14 | A.OFFVIS_ITS ---
Vital Signs 11/25/24 11:22 Height 5 ft 6.5 in Weight 166 lb 0.129 oz BMI 26.4 BP 132/80 Blood Pressure Location Lt brachial Position Sitting Pulse 71 Pulse Source Pulse Oximeter Pulse Oximetry (%) 98 Oxygen Delivery Method Room Air Intake Visit Reasons: euflexxa 1 Intake Note: Patient presents for Euflexxa 1. Patient stated her LT knee is swollen and in pain. Allergies pregabalin Allergy (Intermediate, Verified 11/25/24 11:20) rash, headaches HPI Comments Details: Patient is a 63-year-old female with polyarticular osteoarthritis involving the hands, lower back and occasionally the knees, and bilateral carpal tunnel syndrome who is here today for follow-up. Interval History: Last seen 10/05/24 with me. At that time she was experiencing improvement in her left wrists after carpal tunnel steroid injection. She was also complaining of bilateral knee pain. Exam was consistent with osteoarthritis. Today she is here for bilateral knee gel injections Rheumatologic History: Notes for patient is seen as far back as April 2020 where she presented for evaluation of low back pain. Over the years she has been following up with Rheumatology for diagnosis of osteoarthritis. She has a low titer BRENDEN 1-40 homogeneous. All her other antibodies including RF, anti CCP, ADELA are negative. 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 of non-steroidal anti-inflammatories (NSAID) Abdominal hernia H/O diverticulitis of colon Surgical History Hx of resection of large bowel History of arthroscopy of left knee H/O colonoscopy History of intestinal surgery History of partial hysterectomy Hx of knee surgery Family History Father Heart attack Mother Colon cancer Diabetes Social History Alcohol intake: current Alcohol intake frequency: holidays/special occasions only Patient Tobacco Use Status: Former Tobacco user Current occupational status: employed Current occupation: [employer] Sexual orientation: Straight/Heterosexual Gender identity: Female Review of Systems Const Details: Review of Systems Constitutional: Denies fever, chills, weight loss ENT: Denies vision changes, eye pain or eye redness, dental caries, dry mouth GI: Denies nausea, vomiting, diarrhea, abdominal pain, change in BM Pulm: Denies SOB, THOMAS, hemoptysis, wheezing Cards: Denies chest pain, palpitations Skin: Denies Raynaud's, rash, nail changes, photosensitivity, 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 ?No tenderness, increased warmth or erythema.? Bilateral crepitations felt. Mild swelling noted to the left knee Office Procedures AMB Joint Injection/Aspiration Joint Injection/Aspiration Details: Procedure was explained to the patient and consent was obtained. ? The area of interest was identified and confirmed with patient. ?This was subsequently cleaned with chlorhexidine x3. ? The area was then anesthetized using ethyl chloride spray. 2cc Euflexxa was injected without issue. ?Minimal to no bleeding. ?Patient tolerated procedure. Primary Site: right knee Prep: site was prepped using aseptic technique and ethochloride spray was applied Injected: other (2cc Euflexxa) Approach Used: medial parapatellar Procedure: The patient tolerated the procedure well Coding 58713 - Large joint Procedure code (CPT) selection complete AMB Joint Injection/Aspiration Joint Injection/Aspiration Details: Procedure was explained to the patient and consent was obtained. ? The area of interest was identified and confirmed with patient. ?This was subsequently cleaned with chlorhexidine x3. ? The area was then anesthetized using ethyl chloride spray. 2cc Euflexxa was injected without issue. ?Minimal to no bleeding. ?Patient to lerated procedure. Primary Site: left knee Prep: site was prepped using aseptic technique and ethochloride spray was applied Injected: other (2cc Euflexxa) Approach Used: medial parapatellar Procedure: The patient tolerated the procedure well Coding 60550 - Large joint Procedure code (CPT) selection complete Office Meds Euflexxa 10 mg/mL (mw 2.4-3.6 million) intra-articular syringe Performing Provider: Kiesha Mann MD Performing Location: [facility] Rheumatology Administered by: Kiesha Mann MD on 11/25/24 11:48 Dose Route Admin Location Dispensed Lot Number Expiration Date [place] Electronic [employer] Tr[employer]hooter 20 mg intra-articular right knee 2 mL [id number] 10/09/25 [address]-7 [employer] Euflexxa 10 mg/mL (mw 2.4-3.6 million) intra-articular syringe Performing Provider: Kiesha Mann MD Performing Location: [facility] Rheumatology Administered by: Kiesha Mann MD on 11/25/24 11:48 Dose Route Admin Location Dispensed Lot Number Expiration Date [place] Electronic [employer] 20 mg intra-articular left knee 2 mL [id number] 10/09/25 [address]-4 [employer] Results Reviewed Results Reviewed: Laboratory Tests 09/25/24 08:29 WBC 5.3 RBC 4.93 Hgb 14.5 Hct 45.6 Plt Count 237 ESR 7 Sodium 141 Potassium 4.3 Chloride 106 Carbon Dioxide 29 BUN 22 H Creatinine 0.81 AST 25 ALT 17 Alkaline Phosphatase 61 C-Reactive Protein 0.15 Immunology labs 12/15/18 12:35 Rheumatoid Factor < 15.0 Cycl Citrul Peptide IgG <16 BRENDEN Screen Positive H BRENDEN Titer 1:40 H Anti-ds DNA (Crithidia) Negative Complement C3 134 Complement C4 26 Assessment & Plan Assessment & Plan (1) Osteoarthritis of knees, bilateral: Code(s): M17.0 - Bilateral primary osteoarthritis of knee Category: Medical Qualifiers: Osteoarthritis type: primary Qualified Code(s): M17.0 - Bilateral primary osteoarthritis of knee Plan: #Bilateral knee OA Patient is a 64 y.o. female with bilateral knee OA here today for follow up. Received first dose of Euflexxa today Plan - s/p Euflexxa to bilateral knees x 1 st dose - RTC 1 week Plan I spent 20 minutes reviewing the record and labs, taking a history, examining the patient, discussing the treatment plan, ordering diagnostic work up and documenting in the medical record Orders: Orders AMB Joint Injection/Aspiration Today M17.0 - Bilateral primary osteoarthritis of knee AMB Joint Injection/Aspiration Today M17.0 - Bilateral primary osteoarthritis of knee Coding Level of Care Code Est Pt Level 3 (39504) Diagnoses Primary osteoarthritis of both knees M17.0 Osteoarthritis type: primary CPT Codes Coding - 06116 Large joint: 37456 - Large joint ([id number]) Coding - 66302 Large joint: 27894 - Large joint ([id number])
[2024-11-25 11:22] VITALS: BP 132/80; PULSE 71; O2SAT 98; BMI 26.4
--- OUTSIDE RECORDS SUMMARY | 2024-11-25 13:21 | XMS_ITS | Patient Health Record ---
Author Organization [facility] Address [address] [place] [address] Care Team Providers Care Clinic Licensed Practical Nurse Name Role Phone Dejon Mccray Primary Care [...] Problem Status W/U Status Risk Notes Problem 579696494 Colon cancer screening (Z12.11) Active confirmed Problem 46379926 Encounter for other preprocedural examination (Z01.818) Active confirmed Problem 725760914 Encounter for long-term (current) use of NSAIDs (Z79.1) Active confirmed Problem 771926445 Family history o f colon cancer (Z80.0) Active confirmed Plan Of Treatment Future Test Test Name Order Date COLONOSCOPY 08/23/2016 COLONOSCOPY 08/07/2022 COLONOSCOPY 07/30/2023 Insurance Providers Payer Name Payer Address Payer Phone Subscriber Number Group Number Insured Name Patient Relationship to Insured Coverage Start Date Coverage End Date [facility] (NEEDS REFERRAL) [address] [place] [phone] [id number] LON KENNEDY Self - patient is the insured MEDICARE OF [place] [address] [place] [address] [id number] LON KENNEDY Self - patient is the [...]
== END 2024-11-25 11:47 | disposition home or self-care (01) ==
LOC: HO.RHE 11:12
PROVIDERS: PCP Internal Medicine; Visit Provider Student in an Organized Health Care Education/Training Program
DX: M17.0 Bilateral primary osteoarthritis of knee (principal)
CPT/HCPCS: 20610; 99213

== ENCOUNTER → 2024-11-25 11:12 | Outpatient (BNVA) | payer MEDICARE, SELFPAY | PROVIDERS: PCP Internal Medicine; Visit Provider Student in an Organized Health Care Education/Training Program | DX: M17.0 Bilateral primary osteoarthritis of knee (principal); G56.03 Carpal tunnel syndrome, bilateral upper limbs | CPT/HCPCS: 20610; 99212; J7323 ==

== ENCOUNTER 2024-12-02 07:11 | Outpatient (AMB) | payer MEDICARE, SELFPAY ==
--- OUTSIDE RECORDS SUMMARY | 2024-12-02 07:13 | XMS_ITS | Patient Health Record ---
Author Organization [facility] Address [address] [place] [address] Care Team Providers Care Vegetable Packer Name Role Phone Dejon Mccray Primary Care Provider Volodymyr Sloan Jr Unavailable [phone] Allergies Allergen (clinical drug ingredient) Drug/Non Drug [...] Problem Status W/U Status Risk Notes Problem 075496678 Colon cancer screening (Z12.11) Active confirmed Problem 58680855 Encounter for other preprocedural examination (Z01.818) Active confirmed Problem 892005279 Encounter for long-term (current) use of NSAIDs (Z79.1) Active confirmed Problem 282601294 Family history o f colon cancer (Z80.0) Active confirmed Plan Of Treatment Future Test Test Name Order Date COLONOSCOPY 08/23/2016 COLONOSCOPY 08/07/2022 COLONOSCOPY 07/30/2023 Insurance Providers Payer Name Payer Address Payer Phone Subscriber Number Group Number Insured Name Patient Relationship to Insured Coverage Start Date Coverage End Date [facility] (NEEDS REFERRAL) [address] [place] [phone] [id number] LON KENNEDY Self - patient is the insured MEDICARE OF [place] [address] [place] [address] [id number] LON KENNEDY Self - patient is the [...]
--- NOTE | 2024-12-02 07:23 | MHC.OFFVIS ---
Vital Signs 12/02/24 07:30 Height 5 ft 6.5 in Weight 163 lb 2.273 oz BMI 25.9 BP 118/62 Blood Pressure Location Lt brachial Position Sitting Pulse 67 Pulse Source Pulse Oximeter Pulse Oximetry (%) 97 Oxygen Delivery Method Room Air Intake Visit Reasons: Eufexxa 2 Intake Note: Patient presents for Eufexxa 2 follow up. Allergies pregabalin Allergy (Intermediate, Verified 12/02/24 07:29) rash, headaches HPI Comments Details: Patient is a 63-year-old female with polyarticular osteoarthritis involving the hands, lower back and occasionally the knees, and bilateral carpal tunnel syndrome who is here today for follow-up. Interval History: Last seen 11/25/24 with me. At that time she was receiving her 1st series of Euflexxa. Patient did well without any side effects or issues after the injection Today for her 2nd dose of Euflexxa Rheumatologic History: Notes for patient is seen as far back as April 2020 where she presented for evaluation of low back pain. Over the years she has been following up with Rheumatology for diagnosis of osteoarthritis. She has a low titer BRENDEN 1-40 homogeneous. All her other antibodies including RF, anti CCP, ADELA are negative. 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 (NSAID) Abdominal hernia H/O diverticulitis of colon Surgical History Hx of resection of large bowel History of arthroscopy of left knee H/O colonoscopy History of intestinal surgery History of partial hysterectomy Hx of knee surgery Family History Father Heart attack Mother Colon cancer Diabetes Social History Alcohol intake: current Alcohol intake frequency: holidays/special occasions only Patient Tobacco Use Status: Former Tobacco user Current occupational status: employed Current occupation: [employer] Sexual orientation: Straight/Heterosexual Gender identity: Female Review of Systems Const Details: Review of Systems Constitutional: Denies fever, chills, weight loss ENT: Denies vision changes, eye pain or eye redness, dental caries, dry mouth GI: Denies nausea, vomiting, diarrhea, abdominal pain, change in BM Pulm: Denies SOB, THOMAS, hemoptysis, wheezing Cards: Denies chest pain, palpitations Skin: Denies Raynaud's, rash, nail changes, photosensitivity, [employer]: Denies headaches, weakness, paresthesias, recurrent falls MSK: as per HPI All other systems reviewed and are unremarkable except noted above Physical Exam Vital Signs: Last Vital Signs Pulse 67 12/02/24 07:30 BP 118/62 12/02/24 07:30 Pulse Ox 97 12/02/24 07:30 Oxygen Delivery Method Room Air 12/02/24 07:30 BMI result Body Mass Index 25.9 Vital signs reviewed Physical Examination MSK Knees: ?Full range of motion. ?No tenderness, increased warmth or erythema.? Bilateral crepitations felt. Mild swelling noted to the left knee. improved Results Reviewed Results Reviewed: Laboratory Tests 09/25/24 08:29 WBC 5.3 RBC 4.93 Hgb 14.5 Hct 45.6 Plt Count 237 ESR 7 Sodium 141 Potassium 4.3 Chloride 106 Carbon Dioxide 29 BUN 22 H Creatinine 0.81 AST 25 ALT 17 Alkaline Phosphatase 61 C-Reactive Protein 0.15 Immunology labs 12/15/18 12:35 Rheumatoid Factor < 15.0 Cycl Citrul Peptide IgG <16 BRENDEN Screen Positive H BRENDEN Titer 1:40 H Anti-ds DNA (Crithidia) Negative Complement C3 134 Complement C4 26 Assessment & Plan Assessment & Plan (1) Osteoarthritis of knees, bilateral: Code(s): M17.0 - Bilateral primary osteoarthritis of knee Category: Medical Qualifiers: Osteoarthritis type: primary Qualified Code(s): M17.0 - Bilateral primary osteoarthritis of knee Plan: #Bilateral knee OA Patient is a 64 y.o. female with bilateral knee OA here today for follow up. Received 2nd dose of Euflexxa today Plan - s/p Euflexxa to bilateral knees - RTC 1 week Plan I spent 20 minutes reviewing the record and labs, taking a history, examining the patient, discussing the treatment plan, ordering diagnostic work up and documenting in the medical record Coding Level of Care Code Est Pt Level 3 (95164) Diagnoses Primary osteoarthritis of both knees M17.0 Osteoarthritis type: primary
[2024-12-02 07:30] VITALS: BP 118/62; PULSE 67; O2SAT 97; BMI 25.9
== END 2024-12-02 07:56 | disposition home or self-care (01) ==
LOC: HO.RHE 07:12
PROVIDERS: PCP Internal Medicine; Visit Provider Student in an Organized Health Care Education/Training Program
DX: M17.0 Bilateral primary osteoarthritis of knee (principal)
CPT/HCPCS: 20610; 99213

== ENCOUNTER → 2024-12-02 07:11 | Outpatient (BNVA) | payer MEDICARE, SELFPAY | PROVIDERS: PCP Internal Medicine; Visit Provider Student in an Organized Health Care Education/Training Program | DX: M17.0 Bilateral primary osteoarthritis of knee (principal) | CPT/HCPCS: 20610; 99212; J7323 ==

== ENCOUNTER 2024-12-08 09:26 | Outpatient (AMB) | payer MEDICARE, SELFPAY ==
--- NOTE | 2024-12-08 09:34 | MHC.OFFVIS ---
Vital Signs 12/08/24 09:38 Height 5 ft 6.5 in Weight 166 lb 3.657 oz BMI 26.4 BP 120/72 Blood Pressure Location Lt brachial Position Sitting Pulse 71 Pulse Source Pulse Oximeter Pulse Oximetry (%) 98 Oxygen Delivery Method Room Air Intake Visit Reasons: Eufexxa 2 Intake Note: Patient presents for Eufexxa #3 follow up. Allergies pregabalin Allergy (Intermediate, Verified 12/08/24 09:38) rash, headaches Medication List - Last Reconciled 12/08/24 by Kiesha Mann MD [id number] 250-250-65 mg (Excedrin Extra Strength) 2 tabs PO DAILY baclofen 10 mg PO TID diclofenac sodium 1% 1 g topical BID gabapentin 600 mg (2 x 300 mg) PO BEDTIME tramadol 50 mg PO TID 90 days HPI Comments Details: Patient is a 63-year-old female with polyarticular osteoarthritis involving the hands, lower back and occasionally the knees, and bilateral carpal tunnel syndrome who is here today for follow-up. Interval History: Last seen 12/02/24 with me. At that time she was receiving her 2nd series of Euflexxa. Patient did well without any side effects or issues after the injection Today for her 3rd dose of Euflexxa Rheumatologic History: Notes for patient is seen as far back as April 2020 where she presented for evaluation of low back pain. Over the years she has been following up with Rheumatology for diagnosis of osteoarthritis. She has a low titer BRENDEN 1-40 homogeneous. All her other antibodies including RF, anti CCP, ADELA are negative. Medication History: Topical diclofenac 1% qid Tramadol 50mg tid [facility] Medical History (Updated 03/26/24 @ 10:18 by Kiesha Mann MD) Carpal tunnel syndrome, bilateral Urine incontinence Uterine prolapse Osteoarthritis jail current use of non-steroidal anti-inflammatories (NSAID) Abdominal hernia H/O diverticulitis of colon Surgical History Hx of resection of large bowel History of arthroscopy of left knee H/O colonoscopy History of intestinal surgery History of partial hysterectomy Hx of knee surgery Family History Father Heart attack Mother Colon cancer Diabetes Social History Alcohol intake: current Alcohol intake frequency: holidays/special occasions only Patient Tobacco Use Status: Former Tobacco user Current occupational status: employed Current occupation: [employer] Sexual orientation: Straight/Heterosexual Gender identity: Female Review of Systems Const Details: Review of Systems Constitutional: Denies fever, chills, weight loss ENT: Denies vision changes, eye pain or eye redness, dental caries, dry mouth GI: Denies nausea, vomiting, diarrhea, abdominal pain, change in BM Pulm: Denies SOB, THOMAS, hemoptysis, wheezing Cards: Denies chest pain, palpitations Skin: Denies Raynaud's, rash, nail changes, photosensitivity, PHARMACY INTAKE COORDINATOR: Denies headaches, weakness, paresthesias, recurrent falls MSK: as per HPI All other systems reviewed and are unremarkable except noted above Physical Exam Vital Signs: Last Vital Signs Pulse 71 12/08/24 09:38 BP 120/72 12/08/24 09:38 Pulse Ox 98 12/08/24 09:38 Oxygen Delivery Method Room Air 12/08/24 09:38 BMI result Body Mass Index 26.4 Vital signs reviewed Physical Examination MSK Knees: ?Full range of motion. ?No tenderness, increased warmth or erythema.? Bilateral crepitations felt. Mild swelling noted to the left knee. improved Office Procedures AMB Joint Injection/Aspiration Joint Injection/Aspiration Details: Procedure was explained to the patient and informed consent was obtained. ? Risks associated with the procedure were discussed with the patient including but not limited to bleeding, infection, drug reactions and reactions to the topical anesthetic. Patient made aware of signs to look out for infectious complications. The area of interest was identified and confirmed with patient. ?This was subsequently cleaned with chlorhexidine x3. ? The area was then anesthetized using ethyl chloride spray. 2 cc Euflexxa was injected without issue. ?Minimal to no bleeding. ?Patient tolerated procedure. Primary Site: right knee Prep: site was prepped using aseptic technique and ethochloride spray was applied Injected: other (2 cc Euflexxa) Approach Used: anterolateral Procedure: The patient tolerated the procedure well Coding 80639 - Large joint Procedure code (CPT) selection complete AMB Joint Injection/Aspiration Joint Injection/Aspiration Details: Procedure was explained to the patient and informed consent was obtained. ? Risks associated with the procedure were discussed with the patient including but not limited to bleeding, infection, drug reactions and reactions to the topical anesthetic. Patient made aware of signs to look out for infectious complications. The area of interest was identified and confirmed with patient. ?This was subsequently cleaned with chlorhexidine x3. ? The area was then anesthetized using ethyl chloride spray. 2 cc Euflexxa was injected without issue. ?Minimal to no bleeding. ?Patient tolerated procedure. Primary Site: left knee Prep: site was prepped using aseptic technique and ethochloride spray was applied Injected: other (2 cc Euflexxa) Approach Used: anterolateral Procedure: The patient tolerated the procedure well Coding 85515 - Large joint Procedure code (CPT) selection complete Office Meds Euflexxa 10 mg/mL (mw 2.4-3.6 million) intra-articular syringe Performing Provider: Kiesha Mann MD Performing Location: [facility] [place] Rheumatology Administered by: Kiesha Mann MD on 12/08/24 13:03 Dose Route Admin Location Dispensed Lot Number Expiration Date [facility][NOTE 3] [employer] 20 mg intra-articular Right knee 2 mL [id number] 10/11/25 [address]-1 [employer] Total Dispensed Waste 2 mL 0 % Euflexxa 10 mg/mL (mw 2.4-3.6 million) intra-articular syringe Performing Provider: Kiesha Mann MD Performing Location: [facility] [place] Rheumatology Administered by: Kiesha Mann MD on 12/08/24 13:03 Dose Route Admin Location Dispensed Lot Number Expiration Date [facility] [place][NOTE 3] [employer] 20 mg intra-articular left knee 2 mL [id number] 10/11/25 [address]-2 [employer] Total Dispensed Waste 2 mL 0 % Results Reviewed Results Reviewed: Laboratory Tests 09/25/24 08:29 WBC 5.3 RBC 4.93 Hgb 14.5 Hct 45.6 Plt Count 237 ESR 7 Sodium 141 Potassium 4.3 Chloride 106 Carbon Dioxide 29 BUN 22 H Creatinine 0.81 AST 25 ALT 17 Alkaline Phosphatase 61 C-Reactive Protein 0.15 Immunology labs 12/15/18 12:35 Rheumatoid Factor < 15.0 Cycl Citrul Peptide IgG <16 BRENDEN Screen Positive H BRENDEN Titer 1:40 H Anti-ds DNA (Crithidia) Negative Complement C3 134 Complement C4 26 Assessment & Plan Assessment & Plan (1) Osteoarthritis of knees, bilateral: Code(s): M17.0 - Bilateral primary osteoarthritis of knee Category: Medical Qualifiers: Osteoarthritis type: primary Qualified Code(s): M17.0 - Bilateral primary osteoarthritis of knee Plan: #Bilateral knee OA Patient is a 64 y.o. female with bilateral knee OA here today for follow up. Received 3rd dose of Euflexxa today Plan - s/p Euflexxa to bilateral knees - RTC for 6 month visit follow up Plan I spent 20 minutes reviewing the record and labs, taking a history, examining the patient, discussing the treatment plan, ordering diagnostic work up and documenting in the medical record Orders: Orders AMB Joint Injection/Aspiration Today M17.0 - Bilateral primary osteoarthritis of knee AMB Joint Injection/Aspiration Today M17.0 - Bilateral primary osteoarthritis of knee Coding Level of Care Code Est Pt Level 3 (51297) Diagnoses Primary osteoarthritis of both knees M17.0 Osteoarthritis type: primary CPT Codes Coding - 04512 Large joint: 68077 - Large joint ([id number]) Coding - 50319 Large joint: 75114 - Large joint ([id number])
[2024-12-08 09:38] VITALS: BP 120/72; PULSE 71; O2SAT 98; BMI 26.4
--- OUTSIDE RECORDS SUMMARY | 2024-12-08 10:22 | XMS_ITS | Patient Health Record ---
Author Organization [facility] Address [address] [place] [address] Care Team Providers Care Conference Organizer Name Role Phone Dejon Mccray Primary Care [...] Problem Status W/U Status Risk Notes Problem 087756197 Colon cancer screening (Z12.11) Active confirmed Problem 07744865 Encounter for other preprocedural examination (Z01.818) Active confirmed Problem 410050551 Encounter for long-term (current) use of NSAIDs (Z79.1) Active confirmed Problem 010047459 Family history o f colon cancer (Z80.0) Active confirmed Plan Of Treatment Future Test Test Name Order Date COLONOSCOPY 08/23/2016 COLONOSCOPY 08/07/2022 COLONOSCOPY 07/30/2023 Insurance Providers Payer Name Payer Address Payer Phone Subscriber Number Group Number Insured Name Patient Relationship to Insured Coverage Start Date Coverage End Date [facility] (NEEDS REFERRAL) [address] [place] [phone] [id number] LON KENNEDY Self - patient is the insured MEDICARE OF [place] [address] [place] [address] [id number] LON KENNEDY Self - patient is the [...]
== END 2024-12-08 10:13 | disposition home or self-care (01) ==
PROVIDERS: PCP Internal Medicine; Visit Provider Student in an Organized Health Care Education/Training Program
DX: M17.0 Bilateral primary osteoarthritis of knee (principal)
CPT/HCPCS: 20610

== ENCOUNTER → 2024-12-08 09:26 | Outpatient (BNVA) | payer MEDICARE, SELFPAY | PROVIDERS: PCP Internal Medicine; Visit Provider Student in an Organized Health Care Education/Training Program | DX: M17.0 Bilateral primary osteoarthritis of knee (principal) | CPT/HCPCS: 20610; J7323 ==

== ENCOUNTER 2025-01-18 08:27 | Outpatient (REF) | payer MEDICARE, SELFPAY ==
--- OUTSIDE RECORDS SUMMARY | 2025-01-18 08:41 | XMS_ITS | Patient Health Record ---
Author Organization [facility] Address [address] [place] [address] Care Team Providers Care Seamer Elastic Band Name Role Phone Dejon Mccray Primary Care [...] Problem Status W/U Status Risk Notes Problem 883933355 Colon cancer screening (Z12.11) Active confirmed Problem 12334261 Encounter for other preprocedural examination (Z01.818) Active confirmed Problem 143411845 Encounter for long-term (current) use of NSAIDs (Z79.1) Active confirmed Problem 892293911 Family history o f colon cancer (Z80.0) Active confirmed Plan Of Treatment Future Test Test Name Order Date COLONOSCOPY 08/23/2016 COLONOSCOPY 08/07/2022 COLONOSCOPY 07/30/2023 Insurance Providers Payer Name Payer Address Payer Phone Subscriber Number Group Number Insured Name Patient Relationship to Insured Coverage Start Date Coverage End Date [facility] (NEEDS REFERRAL) [address] [place] [address] [id number] LON KENNEDY Self - patient is the insured MEDICARE OF [place] [address] [place] [address] [id number] LON KENNEDY Self - patient is the [...]
[2025-01-18] MEDS: Lidocaine HCl 1 % MPF 5 ML VIAL SUBCUT (09:48)
[2025-01-18] MEDS: Lidocaine HCl 2 % MPF 5 ML VIAL SUBCUT (09:56)
--- NOTE | 2025-01-18 16:34 | PM.PROC ---
Brief Operative Note Date of procedure: 01/18/25 Pre-op diagnosis: left wrist carpal tunnel Procedure: Date: 01/18/2025 Study Type: Limited Ultrasound with Guidance of needle placement Indication: Numbness and tingling to left hand Study Site: Left Wrist Equipment: [employer] Findings: ?Orthogonal views of the palmar aspect of the left wrist was obtained in grayscale and Doppler. Procedure: ?After obtaining informed consent for an ultrasound-guided glucocorticoid injection of the left wrist median nerve, the median nerve was imaged with ultrasound and revealed increased diameter. The dorsal wrist was sterilely prepped with chlorhexidine and anesthetized with lidocaine spray. ?A 25 gauge 1.5 in needle was advanced under direct ultrasound visualization using in plane technique to inferior median nerve. ?40mg kenalog with 1cc 1% lidocaine was injected without issue. ?The procedure was well tolerated. Impressions: ?Increased diameter of the left median nerve consistent with carpal tunnel syndrome. Successful steroid injection within the perineurium
== END 2025-01-18 08:28 | disposition home or self-care (01) ==
LOC: HO.US 08:27
PROVIDERS: PCP Internal Medicine; Visit Provider Student in an Organized Health Care Education/Training Program
DX: G56.03 Carpal tunnel syndrome, bilateral upper limbs (principal)
CPT/HCPCS: 20526; 76942; J2003; J3301

== ENCOUNTER → 2025-01-18 08:27 | Outpatient (BNV) | payer MEDICARE, SELFPAY | PROVIDERS: PCP Internal Medicine; Visit Provider Student in an Organized Health Care Education/Training Program | DX: G56.02 Carpal tunnel syndrome, left upper limb (principal) | CPT/HCPCS: 20526; 76942 ==

== ENCOUNTER 2025-04-06 07:20 | Outpatient (AMB) | payer MEDICARE, SELFPAY ==
--- OUTSIDE RECORDS SUMMARY | 2025-04-06 07:26 | XMS_ITS | Patient Health Record ---
Author Organization [facility] Address [address] [place] [address] Care Team Providers Care Bacteriologist Industrial Name Role Phone Dejon Mccray Primary Care Provider Volodymyr Sloan Jr Unavailable Allergies Allergen (clinical drug ingredient) Drug/Non Drug Allergy documented on EMR Reaction Allergy Type Onset Date Status pregabalin Lyrica Unknown Drug Allergy Active Reason For Referral No Information Medications Medication SIG (Take, Route, Frequency, Duration) Notes Start Date End Date Status Baclofen 10 MG Oral; Duration: 90 Active Diclofenac Sodium 1 % USE 1 GRAM TOPICAL LY 2 TIMES A DAY APPLY TO THUMBS JOINT TWICE DAY External; Duration: 30 Active Excedrin Extra Strength 250-250-65 MG 2 tablets Orally Once a day; Duration: 30 day(s) Not-Parvez ing traMADol HCl 50 MG 2 tablet Orally QID Active Gabapentin 300 MG 1 capsule qam and 2 qpm Orally daily Active MiraLax (colon prep) 17 GM/SCOOP mixed with Gatorade or Crystal Light Orally begin at 5:00 p.m. the day before the procedure; Duration: 1 day 07/30/2023 Active Immunizations Vaccine Route Administration Date Status Comme nts Influenza Unknown 03/13/2022 Administered Problems Problem Type SNOMED Code ICD Code Onset Dates Problem Status W/U Status Risk Notes Problem Colon cancer screening (553967866) Colon cancer screening (Z12.11) Active confirmed Problem Pre-procedure evaluation check (604149224) Encounter for other preprocedural examination (Z01.818) Active confirmed Problem [facility] current use of non-steroidal anti-inflammat ory drug ([id number] 03) Encounter for long-term (current) use of NSAIDs (Z79.1) Active confirmed Problem Family History of Cancer of Colon (Situation) (276680115) Family history of colon cancer (Z80.0) Active confirmed Plan Of Treatment Future Test Test Name Order Date COLONOSCOPY 08/23/2016 COLONOSCOPY 08/07/2022 COLONOSCOPY 07/30/2023 Insurance Providers Payer Name Payer Address Payer Phone Subscriber Number Group Number Insured Name Patient Relationship to Insured Coverage Start Date Coverage End Date [facility] (NEEDS REFERRAL) [address] [place] [address] [id number] LON KENNEDY Self - patient is the insured MEDICARE OF [place] [address] [place], [place] [id number] LON KENNEDY Self - patient is the [...]
--- NOTE | 2025-04-06 07:34 | A.OFFVIS_ITS ---
Vital Signs 04/06/25 07:38 Height 5 ft 6.5 in Weight 163 lb 5.8 oz BMI 26.0 BP 132/80 Blood Pressure Location Lt brachial Position Sitting Pulse 62 Pulse Source Pulse Oximeter Pulse Oximetry (%) 98 Oxygen Delivery Method Room Air Intake Visit Reasons: CTS Intake Note: Patient presents for CTS follow up. Allergies pregabalin Allergy (Intermediate, Verified 04/06/25 07:37) rash, headaches HPI Comments Details: Patient is a 64-year-old female with polyarticular osteoarthritis involving the hands, lower back and occasionally the knees, and bilateral carpal tunnel syndrome who is here today for follow-up. Interval History: Last seen 01/18/25 with me. - On Tramadol 50mg tid and topical diclofenac 1% - Received last dose in Euflexxa series 12/08/24 - Left wrist CTS steroid injection 01/18/25 Today - On Tramadol 50mg tid and topical diclofenac 1% - Wrists are doing well also. Right wrist still with some numbness - Knees are approved after the Euflexxa, but still gets some aches at night Rheumatologic History: Notes for patient is seen as far back as April 2020 where she presented for evaluation of low back pain. Over the years she has been following up with Rheumatology for diagnosis of osteoarthritis. She has a low titer BRENDEN 1-40 homogeneous. All her other antibodies including RF, anti CCP, ADELA are negative. 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) Abdominal hernia H/O diverticulitis of colon Surgical History Hx of resection of large bowel History of arthroscopy of left knee H/O colonoscopy History of intestinal surgery History of partial hysterectomy Hx of knee surgery Family History Father Heart attack Mother Colon cancer Diabetes Social History Alcohol intake: current Alcohol intake frequency: holidays/special occasions only Patient Tobacco Use Status: Former Tobacco user Current occupational status: employed Current occupation: [employer] Sexual orientation: Straight/Heterosexual Gender identity: Female Review of Systems Const Details: Review of Systems Constitutional: Denies fever, chills, weight loss ENT: Denies vision changes, eye pain or eye redness, dental caries, dry mouth GI: Denies nausea, vomiting, diarrhea, abdominal pain, change in BM Pulm: Denies SOB, THOMAS, hemoptysis, wheezing Cards: Denies chest pain, palpitations Skin: Denies Raynaud's, rash, nail changes, photosensitivity, PUBLIC 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 Well appearing and in no apparent painful distress MSK Hands * Right Hand: Able to make a fist. No swelling or tenderness to palpation of the MCPs, PIPs or DIPs. * Left Hand: Able to make a fist. No swelling or tenderness to palpation of the MCPs, PIPs or DIPs. * Herbedens nodes noted bilaterally Wrists * Right Wrist: Full ROM to flexion and extension. No swelling or TTP * Left Wrist: Full ROM to flexion and extension. No swelling or TTP Elbows * Right Elbow: Full ROM. No swelling or TTP. No TTP of the medial epicondyle. No TTP of the lateral epicondyle * Left Elbow: Full ROM. No swelling or TTP. No TTP of the medial epicondyle. No TTP of the lateral epicondyle Shoulders * Right shoulder: Full ROM. No swelling noted. No TTP of the AC joint. No TTP of the subacromial bursa. No TTP of the posterior shoulder * Left shoulder: Full ROM. No swelling noted. No TTP of the AC joint. No TTP of the subacromial bursa. No TTP of the posterior shoulder Knees * Right knee: Full ROM. No swelling noted. No TTP of the knee joint line. No TTP of pes anserine bursa * Left knee: Full ROM. No swelling noted. No TTP of the knee joint line. No TTP of pes anserine bursa. * Crepitations felt bilaterally Ankles * Right ankle: Good ankle dorsiflexion and plantar flexion. No swelling. No TTP of the ankle joint * Left ankle: Good ankle dorsiflexion and plantar flexion. No swelling. No TTP of the ankle joint Feet * Right foot: Negative squeeze test * Left foot: Negative squeeze test Tender points? * No tenderness to palpation of the bilateral trapezius, supraspinatus, anterior costochondral junctions, bilateral suboccipital muscle insertions SKIN No rashes Vital Signs: Last Vital Signs Pulse 62 04/06/25 07:38 BP 132/80 04/06/25 07:38 Pulse Ox 98 04/06/25 07:38 Oxygen Delivery Method Room Air 04/06/25 07:38 BMI result Body Mass Index 26.0 Results Reviewed Results Reviewed: Laboratory Tests 09/25/24 08:29 WBC 5.3 RBC 4.93 Hgb 14.5 Hct 45.6 Plt Count 237 ESR 7 Sodium 141 Potassium 4.3 Chloride 106 Carbon Dioxide 29 BUN 22 H Creatinine 0.81 AST 25 ALT 17 Alkaline Phosphatase 61 C-Reactive Protein 0.15 Immunology labs 12/15/18 12:35 Rheumatoid Factor < 15.0 Cycl Citrul Peptide IgG <16 BRENDEN Screen Positive H BRENDEN Titer 1:40 H Anti-ds DNA (Crithidia) Negative Complement C3 134 Complement C4 26 Assessment & Plan Assessment & Plan (1) Polyarticular osteoarthritis: Code(s): M15.9 - Polyosteoarthritis, unspecified Plan: #Polyarticular OA Patient is a 64 y.o. female with polyarticular osteoarthritis involving the hands and knees here today for follow up. Patient doing well overall. Has been having good benefit from the Euflexxa series. Still gets some achiness in the knees at the end of the day but notes that she has better range of motion with her knees since getting the injections. Exam today overall unremarkable Plan - S/p Euflexxa 11/2024. Will see how long patient can go without requiring folloq up dose - Continue Tramadol 50mg TID - Topical diclofenac 1% (2) Carpal tunnel syndrome, bilateral: Code(s): G56.03 - Carpal tunnel syndrome, bilateral upper limbs Category: Medical Plan: #Carpal tunnel syndrome - bilateral Patient with bilateral carpal tunnel syndrome status post steroid injection, most recently to the left wrist 12/2024 Doing well Complaining of some right wrist numbness but this is mild Plan - Repeat injections prn Plan I spent 20 minutes reviewing the record and labs, taking a history, examining the patient, discussing the treatment plan, ordering diagnostic work up and doc umenting in the medical record Coding Level of Care Code Est Pt Level 3 (83686) Complex EM visit Add On G2211 Diagnoses Polyarticular osteoarthritis M15.9 Carpal tunnel syndrome, bilateral G56.03
[2025-04-06 07:38] VITALS: BP 132/80; PULSE 62; O2SAT 98; BMI 26.0
== END 2025-04-06 07:59 | disposition home or self-care (01) ==
LOC: HO.RHES 07:21
PROVIDERS: PCP Internal Medicine; Visit Provider Student in an Organized Health Care Education/Training Program
DX: M15.9 Polyosteoarthritis, unspecified (principal); G56.03 Carpal tunnel syndrome, bilateral upper limbs
CPT/HCPCS: 99213; G2211

== ENCOUNTER → 2025-04-06 07:20 | Outpatient (BNVA) | payer MEDICARE, SELFPAY | PROVIDERS: PCP Internal Medicine; Visit Provider Student in an Organized Health Care Education/Training Program | DX: G56.03 Carpal tunnel syndrome, bilateral upper limbs (principal); M15.9 Polyosteoarthritis, unspecified | CPT/HCPCS: 99212 ==